=== PATIENT | female | born 1935 | race Caucasian/White ===

== ENCOUNTER 2016-06-22 22:29 | Inpatient (IN) | payer MEDICARE, MEDICAID ==
[2016-06-22 22:29] VITALS: BMI 27.3
--- NOTE | 2016-06-22 22:40 | ED PDOC ---
Psych Transfer Clearance - Clearance Statement Clearance Statement: Reviewed vital signs, lab results and transfer papers. Patient clinically stable for psychiatric admission. UTI treated
[2016-06-22] MEDS ORDERED: Magnesium Hydroxide Susp 30 ml UD PO PRN (23:18)
[2016-06-22] MEDS ORDERED: Bismuth Subsalicylate 262 mg/15 ml Sus (240 ml) PO PRN (23:18)
[2016-06-23 00:41] VITALS: O2SAT 98
[2016-06-23 07:43] LABS: T4 5.97 ug/dl (5.5-11.0)
[2016-06-23 07:57] LABS: THYROID STIMULATING HORMONE 4.12 mIU/ML (0.46-4.68)
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
[2016-06-23] MEDS ORDERED: [UNRECOGNIZED DRUG - OTHER] PO SCH (16:00)
[2016-06-23] MEDS ORDERED: HYDROCHLOROTHIAZIDE PO SCH (16:00)
[2016-06-23] MEDS ORDERED: VALSARTAN PO SCH (16:00)
[2016-06-23] MEDS: Cefdinir 300 MG CAP PO SCH (16:36)
--- NOTE | 2016-06-23 16:41 | CP.PCM.CON ---
History of Present Illness - History of Present Illness History of Present Illness: 81 yo female with history of Schizophrenia admitted to [facility] because of paranoia that her was trying to kill her. Review of Systems - Review of Systems All systems: reviewed and no additional remarkable complaints except (aside from those mentioned above, 12 point system review were negative by me) Past Patient History - Past Medical History & Family History Past Medical History?: Yes - Past Social History Smoking Status: Never Smoked Alcohol: None Drugs: Denies - CARDIAC Hx Hypercholesterolemia: Yes Hx Hypertension: Yes - PULMONARY Hx Asthma: Yes Hx Chronic Obstructive Pulmonary Disease (COPD): Yes - NEUROLOGICAL Hx Alzheimer's Disease: Yes HX Cerebrovascular Accident: No Hx Seizures: No - HEENT Hx HEENT Problems: No - RENAL Hx Chronic Kidney Disease: No - ENDOCRINE/METABOLIC Hx Diabetes Mellitus Type 2: Yes - HEMATOLOGICAL/ONCOLOGICAL Hx Cancer: No Hx Human Immunodeficiency Virus (HIV): No - INTEGUMENTARY Hx Dermatological Problems: No - MUSCULOSKELETAL/RHEUMATOLOGICAL Hx Falls: Yes - GASTROINTESTINAL Hx Gastritis: Yes - GENITOURINARY/GYNECOLOGICAL Hx Sexually Transmitted Disorders: No - PSYCHIATRIC Hx Depression: Yes Hx Schizophrenia: Yes Hx Substance Use: No - SURGICAL HISTORY Hx Coronary Stent: Yes (CANNOT RECALL DATE) - ANESTHESIA Hx Anesthesia: Yes Hx Anesthesia Reactions: No Meds Allergies/Adverse Reactions: Allergies Allergy/AdvReac Type Severity Reaction Status Date / Time No Known Allergies Allergy Verified 06/22/16 22:32 - Medications Medications: Current Medications Acetaminophen (Tylenol 325mg Tab) 650 mg PO Q4 PRN PRN Reason: Pain, moderate (4-7) Last Admin: 06/23/16 10:39 Dose: 650 mg Al Hydrox/Mg Hydrox/Simethicone (Maalox Plus 30 Ml) 30 ml PO Q4 PRN PRN Reason: Dyspepsia Bismuth Subsalicylate (Pepto-Bismol) 524 mg PO Q4 PRN PRN Reason: Diarrhea Cefdinir (Omnicef) 300 mg PO BID [facility] Last Admin: 06/23/16 16:36 Dose: 300 mg Cholecalciferol (Vitamin D) 1,000 iu PO QWK [facility] Gabapentin (Neurontin) 600 mg PO DAILY [facility] Haloperidol (Haldol) 2 mg PO Q8 PRN PRN Reason: Agitation Haloperidol Lactate (Haldol) 2 mg IM Q8 PRN PRN Reason: Agitation Hydrochlorothiazide (Microzide) 12.5 mg PO DAILY [facility] Insulin Detemir (Levemir) 25 units SC HS [facility] Magnesium Hydroxide (Milk Of Magnesia) 30 ml PO HS PRN PRN Reason: Constipation Metformin HCl (Glucophage) 500 mg PO BIDWM [facility] Mirtazapine (Remeron) 15 mg PO HS [facility] Nortriptyline HCl (Pamelor) 25 mg PO DAILY [facility] Last Admin: 06/23/16 12:38 Dose: 25 mg Quetiapine Fumarate (Seroquel) 50 mg PO HS [facility] Quetiapine Fumarate (Seroquel) 25 mg PO Q6 PRN PRN Reason: Agitation Valsartan (Diovan) 160 mg PO DAILY [facility] Physical Exam - Constitutional Appears: No Acute Distress - Head Exam Head Exam: ATRAUMATIC - Eye Exam Eye Exam: absent: Scleral icterus - ENT Exam ENT Exam: Mucous Membranes Moist - Neck Exam Neck exam: Negative for: Meningismus - Respiratory Exam Respiratory Exam: absent: Rhonchi, Wheezes, Respiratory Distress - Cardiovascular Exam Cardiovascular Exam: REGULAR RHYTHM, +S1, +S2 - GI/Abdominal Exam GI & Abdominal Exam: Soft. absent: Tenderness - Rectal Exam Rectal Exam: Deferred - Neurological Exam Neurological exam: Alert, Oriented x3 - Psychiatric Exam Psychiatric exam: Normal Affect - Skin Skin Exam: Dry, Intact Results - Vital Signs Recent Vital Signs: Last Vital Signs Temp 98.2 F 06/23/16 15:43 Pulse 76 06/23/16 15:43 Resp 18 06/23/16 15:43 BP 133/96 H 06/23/16 15:43 Pulse Ox 98 06/22/16 23:10 - Labs Labs: Laboratory Results - last 24 hr 06/23/16 06/23/16 06/23/16 05:17 06:58 11:46 POC Glucose (mg/dL) 107 216 H Ferritin 58.0 Vitamin B12 296 Free T4 0.83 Thyroxine (T4) 5.97 TSH 3rd Generation 4.12 06/23/16 15:11 POC Glucose (mg/dL) 174 H Ferritin Vitamin B12 Free T4 Thyroxine (T4) TSH 3rd Generation Assessment & Plan (1) Paranoia Status: Acute Comment: psyche is managing (2) UTI (urinary tract infection) Status: Acute Comment: received Macrobid in the ER however pharmacy claimed her creatinine clearance is way up and Nitrofurantoin is contraindicated. Cefdinir 300mg PO BID for 5 days (3) HTN (hypertension) Status: Acute Comment: BP slightly elevated. Valsartan 160mg PO daily. HCTZ 12.5mg PO daily
[2016-06-23] MEDS ORDERED: TIZANIDINE HCL 4 MG PO SCH (17:00)
[2016-06-23] MEDS: Insulin Detemir 100 Units/ml Inj SC SCH (21:16)
[2016-06-24 07:48] LABS: BLOOD UREA NITROGEN 17 mg/dl (7-17); CALCIUM 9.6 mg/dL (8.4-10.2); CARBON DIOXIDE 26 mmol/L (22-30); CHLORIDE 104 mmol/L (98-107); GFR AFRICAN-AMERICAN > 60; GLUCOSE,RANDOM 131 mg/dL (65-105); POTASSIUM 4.1 MMOL/L (3.6-5.0); SODIUM 145 mmol/l (132-148)
[2016-06-24 07:55] LABS: BASO % 0.6 % (0.0-2.0); EOS % 0.4 % (0.0-4.0); HEMATOCRIT 37.3 % (34.0-47.0); LYMPH # 2.6 K/uL (1.0-4.3); LYMPH % 34.8 % (20.0-40.0); MEAN CELL VOLUME 90.1 fl (81.0-99.0); MEAN CORPUSCULAR HEMOGLOBIN 29.7 pg (27.0-31.0); MEAN PLATELET VOLUME 9.2 fl (7.2-11.7); MONO % 12.7 % (0.0-10.0); NEUT # 3.9 K/uL (1.8-7.0); NEUT % 51.5 % (50.0-75.0); RED CELL DISTRIBUTION WIDTH 14.8 % (11.5-14.5); WHITE BLOOD COUNT 7.5 K/uL (4.8-10.8)
[2016-06-24] MEDS: Cefdinir 300 MG CAP PO SCH ×2 (09:49→17:49)
--- NOTE | 2016-06-24 10:42 | PCM.PYCHPN ---
Psychiatric Progress Note - Psychiatric Progress Note Patient seen today, length of contact: Patient evaluated, case discussed with team, chart reviewed Patient Chief Complaint: "My wants to hurt me" Problems Identified/Issues Discussed: Patient continues to be paranoid that her want to kill and harm her. She is unable to reality test. She reports continued feelings of fear and anxiety related to her paranoia. No current AH/VH. She has been sleep/eating well as per staff observation. Medication Change: Yes (Increase Seroquel to 100 mg PO HS) Medical Record Reviewed: Yes Mental Status Examination - Cognitive Function Orientation: Person, Place, Situation, Time Memory: Impaired (Patient unable to give a good history, unclear if due to dementia or psychosis) Association: Loose - Mood Mood: Depressed, Anxious - Affect Affect: Constricted (Scared that her is trying to kill her) - Speech Speech: Soft - Formal Thought Process Formal Thought Process: Delusions, Paranoia Psychotic Thoughts and Behaviors: +Paranoia, Denies AH/VH - Suicidal Ideation Suicidal Ideation: No - Homicidal Ideation Homicidal Ideation: No Goal/Treatment Plan - Goal/Treatment Plan Need for Continued Stay: Remain at risks for inpatient hospitalization, Discharge may exacerbated symptoms, Severe functional impairment Progress Toward Problem(s) and Goals/Treatment Plan: 81 yo female with reported h/o schizophrenia, presents with acute psychosis, paranoia and bizarre/aggressive behaviors. Need to r/o dementia. Plan: -Increase Seroquel to 100 mg PO HS, will titrate as clinically appropriate -Continue Remeron 15 mg PO HS, will consider titrating as clinically indicated -Continue Nortriptyline 25 mg PO Daily -Psychology consult for r/o dementia; will also consider Neurology consult if patient has clear signs of dementia to recommend appropriate medications -Routine medicine consult appreciated -PT screening Estimated Date of D/C: 06/30/16
[2016-06-24] MEDS: Insulin Detemir 100 Units/ml Inj SC SCH (21:26)
[2016-06-25] MEDS: Cefdinir 300 MG CAP PO SCH ×2 (09:31→17:35)
--- NOTE | 2016-06-25 10:55 | CP.PCM.CON ---
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 Pt spoke of her spirits on interview and her thinking was disorganized. Testing may be an underestimate of her true cognitive status, influenced by her current psychiatric status. On the DRS, pt scored an overall score of 100>. Attention skills fell within normal limits. Her Construction, memory, conceptualization skills and initiation skills all fell in the deficient range. Testing consistent with significant cognitive deficits and current thought disorganization. Overall 100 (125+ = intact cognitive skills) thank you for this referral, Dr. Chamberlain Past Patient History - Past Medical History & Family History Past Medical History?: Yes - Past Social History Smoking Status: Never Smoked Alcohol: None Drugs: Denies - CARDIAC Hx Hypercholesterolemia: Yes Hx Hypertension: Yes - PULMONARY Hx Asthma: Yes Hx Chronic Obstructive Pulmonary Disease (COPD): Yes - NEUROLOGICAL Hx Alzheimer's Disease: Yes HX Cerebrovascular Accident: No Hx Seizures: No - HEENT Hx HEENT Problems: No - RENAL Hx Chronic Kidney Disease: No - ENDOCRINE/METABOLIC Hx Diabetes Mellitus Type 2: Yes - HEMATOLOGICAL/ONCOLOGICAL Hx Cancer: No Hx Human Immunodeficiency Virus (HIV): No - INTEGUMENTARY Hx Dermatological Problems: No - MUSCULOSKELETAL/RHEUMATOLOGICAL Hx Falls: Yes - GASTROINTESTINAL Hx Gastritis: Yes - GENITOURINARY/GYNECOLOGICAL Hx Sexually Transmitted Disorders: No - PSYCHIATRIC Hx Depression: Yes Hx Schizophrenia: Yes Hx Substance Use: No - SURGICAL HISTORY Hx Coronary Stent: Yes (CANNOT RECALL DATE) - ANESTHESIA Hx Anesthesia: Yes Hx Anesthesia Reactions: No Meds Allergies/Adverse Reactions: Allergies Allergy/AdvReac Type Severity Reaction Status Date / Time No Known Allergies Allergy Verified 06/22/16 22:32 - Medications Medications: Current Medications Acetaminophen (Tylenol 325mg Tab) 650 mg PO Q4 PRN PRN Reason: Pain, moderate (4-7) Last Admin: 06/24/16 09:47 Dose: 650 mg Al Hydrox/Mg Hydrox/Simethicone (Maalox Plus 30 Ml) 30 ml PO Q4 PRN PRN Reason: Dyspepsia Bismuth Subsalicylate (Pepto-Bismol) 524 mg PO Q4 PRN PRN Reason: Diarrhea Cefdinir (Omnicef) 300 mg PO BID [facility] Last Admin: 03/31/17 09:31 Dose: 300 mg Cholecalciferol (Vitamin D) 1,000 iu PO QWK [facility] Gabapentin (Neurontin) 600 mg PO DAILY [facility] Last Admin: 06/25/16 09:31 Dose: 600 mg Haloperidol (Haldol) 2 mg PO Q8 PRN PRN Reason: Agitation Haloperidol Lactate (Haldol) 2 mg IM Q8 PRN PRN Reason: Agitation Hydrochlorothiazide (Microzide) 12.5 mg PO DAILY [facility] Last Admin: 06/25/16 09:32 Dose: 12.5 mg Insulin Detemir (Levemir) 25 units SC HS [facility] Last Admin: 06/24/16 21:26 Dose: 25 units Magnesium Hydroxide (Milk Of Magnesia) 30 ml PO HS PRN PRN Reason: Constipation Last Admin: 06/25/16 06:59 Dose: 30 ml Metformin HCl (Glucophage) 500 mg PO BIDWM [facility] Last Admin: 06/25/16 09:32 Dose: 500 mg Mirtazapine (Remeron) 15 mg PO HS [facility] Last Admin: 06/24/16 21:25 Dose: 15 mg Nortriptyline HCl (Pamelor) 25 mg PO DAILY [facility] Last Admin: 06/25/16 09:32 Dose: 25 mg Quetiapine Fumarate (Seroquel) 25 mg PO Q6 PRN PRN Reason: Agitation Quetiapine Fumarate (Seroquel) 100 mg PO HS [facility] Last Admin: 06/24/16 21:25 Dose: 100 mg Valsartan (Diovan) 160 mg PO DAILY [facility] Last Admin: 06/25/16 09:32 Dose: 160 mg Results - Vital Signs Recent Vital Signs: Last Vital Signs Temp 97.1 F L 06/25/16 06:00 Pulse 89 06/25/16 06:00 Resp 18 06/25/16 06:00 BP 139/73 06/25/16 06:00 Pulse Ox 98 06/22/16 23:10 - Labs Result Diagrams: 06/24/16 07:16 06/24/16 07:16 Labs: Laboratory Results - last 24 hr 06/24/16 06/24/16 06/24/16 11:58 15:40 19:58 POC Glucose (mg/dL) 241 H 160 H 255 H 06/25/16 06:19 POC Glucose (mg/dL) 182 H
--- NOTE | 2016-06-25 18:11 | PCM.PYCHPN ---
Psychiatric Progress Note - Psychiatric Progress Note Patient seen today, length of contact: Patient evaluated, case discussed with team, chart reviewed Medical Problems: per chart Diagnostic Results: per psychiatry per medicine per nursing per social work per recreational therapy DSM 5 Symptoms Update: alteration in self care alteration in cognitive function Medication Change: No Medical Record Reviewed: Yes Mental Status Examination - Cognitive Function Orientation: Person, Place, Situation, Time Memory: Impaired (Patient unable to give a good history, unclear if due to dementia or psychosis) Attention: Poor Concentration: Poor Association: Loose Fund of Knowledge: Poor Decription of patient's judgement and insights: impaired - Mood Mood: Depressed, Anxious - Affect Affect: Constricted (Scared that her is trying to kill her) - Speech Speech: Soft - Formal Thought Process Formal Thought Process: Delusions, Paranoia - Suicidal Ideation Suicidal Ideation: No - Homicidal Ideation Homicidal Ideation: No Goal/Treatment Plan - Goal/Treatment Plan Need for Continued Stay: Remain at risks for inpatient hospitalization, Discharge may exacerbated symptoms, Severe functional impairment Progress Toward Problem(s) and Goals/Treatment Plan: inpt milieu adjust meds per clinical status vital signs and clinical observation per protocol and per status falls precaution skin integrety precautions hob elevated with po intake discharge planning in progress Estimated Date of D/C: 06/30/16 - Smoking Cessation Smoking Cessation Initiated: No Reason for not providing: deferred
[2016-06-25] MEDS: Insulin Detemir 100 Units/ml Inj SC SCH (22:02)
[2016-06-26] MEDS: Cefdinir 300 MG CAP PO SCH ×2 (08:51→16:55)
--- NOTE | 2016-06-26 12:36 | PCM.PYCHPN ---
Psychiatric Progress Note - Psychiatric Progress Note Patient seen today, length of contact: Patient evaluated, case discussed with team, chart reviewed Patient Chief Complaint: pt has remained paranoid and internally preoccupied Medication Change: No Medical Record Reviewed: Yes Mental Status Examination - Cognitive Function Orientation: Person, Place, Situation, Time Memory: Impaired (Patient unable to give a good history, unclear if due to dementia or psychosis) Attention: Poor Concentration: Poor Association: Loose Fund of Knowledge: Poor - Mood Mood: Depressed, Anxious - Affect Affect: Constricted (Scared that her is trying to kill her) - Speech Speech: Soft - Formal Thought Process Formal Thought Process: Delusions, Paranoia - Suicidal Ideation Suicidal Ideation: No - Homicidal Ideation Homicidal Ideation: No Goal/Treatment Plan - Goal/Treatment Plan Need for Continued Stay: Remain at risks for inpatient hospitalization, Discharge may exacerbated symptoms, Severe functional impairment Progress Toward Problem(s) and Goals/Treatment Plan: will continue to stabilize pt with therapy and meds Estimated Date of D/C: 06/30/16
[2016-06-26] MEDS: Insulin Detemir 100 Units/ml Inj SC SCH (22:00)
[2016-06-27] MEDS ORDERED: Albuterol-Ipratrop 3 mg / 0.5 (3 ml) UD INH PRN (00:03)
[2016-06-27] MEDS: Cefdinir 300 MG CAP PO SCH ×2 (09:05→17:48)
--- NOTE | 2016-06-27 14:21 | PCM.PYCHPN ---
Psychiatric Progress Note - Psychiatric Progress Note Patient seen today, length of contact: Patient evaluated, case discussed with team, chart reviewed Patient Chief Complaint: pt has remained paranoid and internally preoccupied Problems Identified/Issues Discussed: admitted for acute agitation and psychosis due to schizophrenia Medical Problems: DM<gastritis DSM 5 Symptoms Update: schizophrenia paranoid Medication Change: No Medical Record Reviewed: Yes Mental Status Examination - Cognitive Function Orientation: Person, Place, Situation, Time Memory: Impaired (Patient unable to give a good history, unclear if due to dementia or psychosis) Attention: Poor Concentration: Poor Association: Loose Fund of Knowledge: Poor - Mood Mood: Depressed, Anxious - Affect Affect: Constricted (Scared that her is trying to kill her) - Speech Speech: Soft - Formal Thought Process Formal Thought Process: Delusions, Paranoia - Suicidal Ideation Suicidal Ideation: No - Homicidal Ideation Homicidal Ideation: No Goal/Treatment Plan - Goal/Treatment Plan Need for Continued Stay: Remain at risks for inpatient hospitalization, Discharge may exacerbated symptoms, Severe functional impairment Progress Toward Problem(s) and Goals/Treatment Plan: will continue to titrate the meds seroquel,remeron and other meds to stabilize the pt Estimated Date of D/C: 06/30/16
[2016-06-27] MEDS: Insulin Detemir 100 Units/ml Inj SC SCH (21:19)
[2016-06-28] MEDS: Cefdinir 300 MG CAP PO SCH ×2 (09:15→17:10)
[2016-06-28 10:27] LABS: NORTRIPTYLINE None Det. mcg/L (())
[2016-06-28] MEDS: Insulin Lispro (humaLOG) 100 Units/ml Inj SC SCH ×2 (17:09→22:00)
--- NOTE | 2016-06-28 17:28 | PCM.PYCHPN ---
Psychiatric Progress Note - Psychiatric Progress Note Patient seen today, length of contact: Patient evaluated, case discussed with team, chart reviewed Patient Chief Complaint: changes in cognition, paranoia, alteration in self care Problems Identified/Issues Discussed: changes in memory, changes cognition, changes in self care Medical Problems: per chart Diagnostic Results: per psychiatry per medicine per nursing per social work per recreational therapy DSM 5 Symptoms Update: alteration in memory alteration in mood alteration in self care alteration in cognition Medication Change: No Medical Record Reviewed: Yes Mental Status Examination - Cognitive Function Orientation: Person, Place, Situation Memory: Impaired (Patient unable to give a good history, unclear if due to dementia or psychosis) Attention: Poor Concentration: Poor Association: Loose Fund of Knowledge: Poor - Mood Mood: Depressed, Anxious - Affect Affect: Constricted (Scared that her is trying to kill her) - Speech Speech: Soft - Formal Thought Process Formal Thought Process: Delusions, Paranoia - Suicidal Ideation Suicidal Ideation: No - Homicidal Ideation Homicidal Ideation: No Goal/Treatment Plan - Goal/Treatment Plan Need for Continued Stay: Remain at risks for inpatient hospitalization, Discharge may exacerbated symptoms, Severe functional impairment Progress Toward Problem(s) and Goals/Treatment Plan: inpt milieu adjust meds per clinical status vital signs and clinical observation per protocol and per status falls precaution skin integrety precautions hob elevated with po intake discharge planning in progress Estimated Date of D/C: 07/02/16 - Smoking Cessation Smoking Cessation Initiated: No Reason for not providing: deferred
[2016-06-28] MEDS: Insulin Detemir 100 Units/ml Inj SC SCH (21:05)
[2016-06-28] MEDS: Hydrocortisone 2.5% (Rectal) CREAM PR SCH (21:07)
[2016-06-29] MEDS: Insulin Lispro (humaLOG) 100 Units/ml Inj SC SCH ×4 (08:22→21:28)
[2016-06-29] MEDS: Hydrocortisone 2.5% (Rectal) CREAM PR SCH ×2 (08:22→16:33)
--- NOTE | 2016-06-29 17:14 | PCM.PYCHPN ---
Psychiatric Progress Note - Psychiatric Progress Note Patient seen today, length of contact: Patient evaluated, case discussed with team, chart reviewed Patient Chief Complaint: changes in cognition, paranoia, alteration in self care-staff report pt continues to be paranoid, fearful that someone is poisoning her food Problems Identified/Issues Discussed: changes in memory, changes cognition, changes in self care Medical Problems: per chart Diagnostic Results: per psychiatry per medicine per nursing per social work per recreational therapy DSM 5 Symptoms Update: alteration in cognition alteration in self care Medication Change: No Medical Record Reviewed: Yes Mental Status Examination - Cognitive Function Orientation: Person, Place, Situation Memory: Impaired (Patient unable to give a good history, unclear if due to dementia or psychosis) Attention: Poor Concentration: Poor Association: Loose Fund of Knowledge: Poor Decription of patient's judgement and insights: poor - Mood Mood: Depressed, Anxious - Affect Affect: Constricted (Scared that her is trying to kill her) - Speech Speech: Soft - Formal Thought Process Formal Thought Process: Delusions, Paranoia - Suicidal Ideation Suicidal Ideation: No - Homicidal Ideation Homicidal Ideation: No Goal/Treatment Plan - Goal/Treatment Plan Need for Continued Stay: Remain at risks for inpatient hospitalization, Discharge may exacerbated symptoms, Severe functional impairment Progress Toward Problem(s) and Goals/Treatment Plan: inpt milieu adjust meds per clinical status vital signs and clinical observation per protocol and per status falls precaution skin integrety precautions hob elevated with po intake discharge planning in progress Estimated Date of D/C: 07/02/16 - Smoking Cessation Smoking Cessation Initiated: No Reason for not providing: defers
[2016-06-29] MEDS: Insulin Detemir 100 Units/ml Inj SC SCH (21:29)
[2016-06-30] MEDS: Hydrocortisone 2.5% (Rectal) CREAM PR SCH ×2 (09:00→16:24)
[2016-06-30] MEDS: Insulin Lispro (humaLOG) 100 Units/ml Inj SC SCH ×3 (09:03→16:25)
--- NOTE | 2016-06-30 21:10 | PCM.PYCHPN ---
Psychiatric Progress Note - Psychiatric Progress Note Patient seen today, length of contact: Patient evaluated, case discussed with team, chart reviewed Patient Chief Complaint: changes in cognition, paranoia, alteration in self care-staff report pt continues to be paranoid, fearful that someone is poisoning her food Problems Identified/Issues Discussed: changes in memory, changes cognition, changes in self care Medical Problems: per chart Diagnostic Results: per psychiatry per medicine per nursing per social work per recreational therapy DSM 5 Symptoms Update: changes in cognition changes in paranoia Medication Change: No Medical Record Reviewed: Yes Mental Status Examination - Cognitive Function Orientation: Person, Place, Situation Memory: Impaired (Patient unable to give a good history, unclear if due to dementia or psychosis) Attention: Poor Concentration: Poor Association: Loose Fund of Knowledge: Poor Decription of patient's judgement and insights: poor - Mood Mood: Depressed, Anxious - Affect Affect: Constricted (Scared that her is trying to kill her) - Speech Speech: Soft - Formal Thought Process Formal Thought Process: Delusions, Paranoia - Suicidal Ideation Suicidal Ideation: No - Homicidal Ideation Homicidal Ideation: No Goal/Treatment Plan - Goal/Treatment Plan Need for Continued Stay: Remain at risks for inpatient hospitalization, Discharge may exacerbated symptoms, Severe functional impairment Progress Toward Problem(s) and Goals/Treatment Plan: inpt milieu adjust meds per clinical status vital signs and clinical observation per protocol and per status falls precaution skin integrety precautions hob elevated with po intake discharge planning in progress Estimated Date of D/C: 07/02/16 - Smoking Cessation Smoking Cessation Initiated: No Reason for not providing: deferred
[2016-06-30] MEDS: Insulin Detemir 100 Units/ml Inj SC SCH (21:12)
[2016-07-01] MEDS: Hydrocortisone 2.5% (Rectal) CREAM PR SCH ×2 (09:26→17:19)
[2016-07-01] MEDS: Insulin Lispro (humaLOG) 100 Units/ml Inj SC SCH ×4 (09:27→21:03)
--- NOTE | 2016-07-01 15:21 | PCM.PYCHPN ---
Psychiatric Progress Note - Psychiatric Progress Note Patient seen today, length of contact: Patient evaluated, case discussed with team, chart reviewed Patient Chief Complaint: changes in cognition, paranoia, alteration in self care-staff report pt continues to be paranoid, fearful that someone is poisoning her food, fearful that someone is trying to kill her Problems Identified/Issues Discussed: changes in memory, changes cognition, changes in self care Medical Problems: per chart Diagnostic Results: per psychiatry per medicine per nursing per social work per recreational therapy DSM 5 Symptoms Update: alteration in cognition alteration in mood alteration in self care alteration in thought process Medication Change: No Medical Record Reviewed: Yes Consults ordered or reviewed: order placed for physical therapy treatment Mental Status Examination - Cognitive Function Orientation: Person, Situation Memory: Impaired (Patient unable to give a good history, unclear if due to dementia or psychosis) Attention: Poor Concentration: Poor Association: Loose Fund of Knowledge: Poor Decription of patient's judgement and insights: impaired - Mood Mood: Depressed, Anxious - Affect Affect: Constricted (Scared that her is trying to kill her) - Speech Speech: Soft - Formal Thought Process Formal Thought Process: Delusions, Paranoia - Suicidal Ideation Suicidal Ideation: No - Homicidal Ideation Homicidal Ideation: No Goal/Treatment Plan - Goal/Treatment Plan Need for Continued Stay: Remain at risks for inpatient hospitalization, Discharge may exacerbated symptoms, Severe functional impairment Progress Toward Problem(s) and Goals/Treatment Plan: inpt milieu adjust meds per clinical status vital signs and clinical observation per protocol and per status falls precaution skin integrety precautions hob elevated with po intake physical therapy treatment discharge planning in progress Estimated Date of D/C: 07/02/16 - Smoking Cessation Smoking Cessation Initiated: No Reason for not providing: deferred
[2016-07-01] MEDS: Insulin Detemir 100 Units/ml Inj SC SCH (21:03)
[2016-07-02] MEDS: Hydrocortisone 2.5% (Rectal) CREAM PR SCH ×2 (08:02→17:50)
[2016-07-02] MEDS: Insulin Lispro (humaLOG) 100 Units/ml Inj SC SCH ×4 (08:03→21:28)
--- NOTE | 2016-07-02 19:29 | PCM.PYCHPN ---
Psychiatric Progress Note - Psychiatric Progress Note Patient seen today, length of contact: Patient evaluated, case discussed with team, chart reviewed Patient Chief Complaint: changes in cognition, paranoia, alteration in self care-staff report pt continues to be paranoid, fearful that someone is poisoning her food, fearful that someone is trying to kill her, previous abnormal urinalysis Problems Identified/Issues Discussed: changes in memory, changes cognition, changes in self care Medical Problems: per chart Diagnostic Results: per psychiatry per medicine per nursing per social work per recreational therapy DSM 5 Symptoms Update: alteration in cognition alteration in thought process alteration in self care Medication Change: No Medical Record Reviewed: Yes Mental Status Examination - Cognitive Function Orientation: Person, Situation Memory: Impaired (Patient unable to give a good history, unclear if due to dementia or psychosis) Attention: Poor Concentration: Poor Association: Loose Fund of Knowledge: Poor Decription of patient's judgement and insights: poor - Mood Mood: Depressed, Anxious - Affect Affect: Constricted (Scared that her is trying to kill her) - Speech Speech: Soft - Formal Thought Process Formal Thought Process: Delusions, Paranoia - Suicidal Ideation Suicidal Ideation: No - Homicidal Ideation Homicidal Ideation: No Goal/Treatment Plan - Goal/Treatment Plan Need for Continued Stay: Remain at risks for inpatient hospitalization, Discharge may exacerbated symptoms, Severe functional impairment Progress Toward Problem(s) and Goals/Treatment Plan: inpt milieu adjust meds per clinical status vital signs and clinical observation per protocol and per status falls precaution skin integrety precautions hob elevated with po intake physical therapy treatment repeat urinalysis please have hospitalist follow up results discharge planning in progress Estimated Date of D/C: 07/02/16 - Smoking Cessation Smoking Cessation Initiated: No Reason for not providing: pt defers
--- NOTE | 2016-07-02 20:34 | CP.PCM.PN ---
Subjective - Date & Time of Evaluation Date of Evaluation: 07/02/16 Time of Evaluation: 20:35 - Subjective Subjective: Patient with elevated BP and some tachycardia with some accompanying CP. Other VSS. Will order EKG, labs/trops, and labetolol x 1 PO. Objective - Vital Signs/Intake and Output Vital Signs (last 24 hours): Temp Pulse Resp BP Pulse Ox 97.3 F L 82 20 138/64 98 07/02/16 15:54 07/02/16 15:54 07/02/16 15:54 07/02/16 15:54 06/22/16 23:10 - Medications Medications: Current Medications Acetaminophen (Tylenol 325mg Tab) 650 mg PO Q4 PRN PRN Reason: Pain, moderate (4-7) Last Admin: 07/02/16 12:09 Dose: 650 mg Al Hydrox/Mg Hydrox/Simethicone (Maalox Plus 30 Ml) 30 ml PO Q4 PRN PRN Reason: Dyspepsia Albuterol/Ipratropium (Duoneb 3 Mg/0.5 Mg (3 Ml) Ud) 3 ml INH RQ6 PRN PRN Reason: Shortness of Breath Last Admin: 06/27/16 00:12 Dose: 3 ml Bismuth Subsalicylate (Pepto-Bismol) 524 mg PO Q4 PRN PRN Reason: Diarrhea Cholecalciferol (Vitamin D) 1,000 iu PO QWK [facility] Last Admin: 06/26/16 08:51 Dose: 1,000 iu Gabapentin (Neurontin) 600 mg PO DAILY [facility] Last Admin: 07/02/16 08:03 Dose: 600 mg Haloperidol (Haldol) 2 mg PO Q8 PRN PRN Reason: Agitation Haloperidol Lactate (Haldol) 2 mg IM Q8 PRN PRN Reason: Agitation Hydrochlorothiazide (Microzide) 12.5 mg PO DAILY [facility] Last Admin: 07/02/16 08:05 Dose: 12.5 mg Hydrocortisone (Anusol-Hc) 1 applic ND BID [facility] Last Admin: 07/02/16 17:50 Dose: 1 appl Insulin Detemir (Levemir) 25 units SC HS [facility] Last Admin: 07/01/16 21:03 Dose: 25 units Insulin Human Lispro (Humalog) 0 units SC [facility] PRN Reason: Protocol Last Admin: 07/02/16 17:45 Dose: 2 units Labetalol HCl (Trandate) 100 mg PO STAT STA Stop: 07/02/16 20:30 Magnesium Hydroxide (Milk Of Magnesia) 30 ml PO HS PRN PRN Reason: Constipation Last Admin: 06/25/16 06:59 Dose: 30 ml Metformin HCl (Glucophage) 500 mg PO BIDWM [facility] Last Admin: 07/02/16 17:49 Dose: 500 mg Mirtazapine (Remeron) 15 mg PO HS [facility] Last Admin: 07/01/16 21:02 Dose: 15 mg Nortriptyline HCl (Pamelor) 25 mg PO DAILY [facility] Last Admin: 07/02/16 08:04 Dose: 25 mg Quetiapine Fumarate (Seroquel) 25 mg PO Q6 PRN PRN Reason: Agitation Last Admin: 07/02/16 08:03 Dose: 25 mg Quetiapine Fumarate (Seroquel) 100 mg PO HS [facility] Last Admin: 07/01/16 21:02 Dose: 100 mg Valsartan (Diovan) 160 mg PO DAILY [facility] Last Admin: 07/02/16 08:02 Dose: 160 mg - Labs Labs: 06/24/16 07:16 06/24/16 07:16
[2016-07-02] MEDS: Alum-Mag Hydrox-Simethicone Susp (30 mL) PO PRN (21:26)
[2016-07-02] MEDS: Insulin Detemir 100 Units/ml Inj SC SCH (21:30)
[2016-07-02 21:39] LABS: MEAN CELL VOLUME 89.7 fl (81.0-99.0); MEAN CORPUSCULAR HEMOGLOBIN 29.8 pg (27.0-31.0); MEAN CORPUSCULAR HGB CONC 33.2 g/dL (33.0-37.0); RED CELL DISTRIBUTION WIDTH 13.9 % (11.5-14.5)
[2016-07-02 21:42] LABS: CALCIUM 9.8 mg/dL (8.4-10.2); POTASSIUM 4.2 MMOL/L (3.6-5.0)
[2016-07-03] MEDS: Hydrocortisone 2.5% (Rectal) CREAM PR SCH ×2 (08:52→17:19)
[2016-07-03] MEDS: Insulin Lispro (humaLOG) 100 Units/ml Inj SC SCH ×4 (11:38→23:38)
--- NOTE | 2016-07-03 12:30 | PCM.PYCHPN ---
Psychiatric Progress Note - Psychiatric Progress Note Patient seen today, length of contact: discussed with team Patient Chief Complaint: the staff aren't taking care of me Problems Identified/Issues Discussed: pt seen with south korean speaking social media intern. states she's not being taken care of right, seems paranoid about staff and about the food. she is in hallway chatting with other south korean patients. she reports poor sleep. Medication Change: Yes (increase seroquel) Medical Record Reviewed: Yes Mental Status Examination - Cognitive Function Orientation: Person, Situation Memory: Impaired (Patient unable to give a good history, unclear if due to dementia or psychosis) Attention: Poor Concentration: Poor Association: Loose Fund of Knowledge: Poor Decription of patient's judgement and insights: poor insight - Mood Mood: Depressed, Anxious - Affect Affect: Constricted (Scared that her is trying to kill her) - Speech Speech: Soft - Formal Thought Process Formal Thought Process: Delusions, Paranoia - Suicidal Ideation Suicidal Ideation: No - Homicidal Ideation Homicidal Ideation: No Goal/Treatment Plan - Goal/Treatment Plan Need for Continued Stay: Remain at risks for inpatient hospitalization, Discharge may exacerbated symptoms, Severe functional impairment Progress Toward Problem(s) and Goals/Treatment Plan: schizophrenia remains paranoid no recent adjustments to seroquel will increase seroquel to 150mg gabrielle monroe Estimated Date of D/C: 07/02/16
--- NOTE | 2016-07-03 15:04 | CARD ---
APPROVED REPORT EKG Measurement Heart [id number] <Conclusion> Normal sinus rhythm Normal ECG
[2016-07-04] MEDS: Hydrocortisone 2.5% (Rectal) CREAM PR SCH ×2 (08:51→16:49)
[2016-07-04] MEDS: Insulin Lispro (humaLOG) 100 Units/ml Inj SC SCH ×3 (08:54→17:04)
--- NOTE | 2016-07-04 13:44 | PCM.PYCHPN ---
Psychiatric Progress Note - Psychiatric Progress Note Patient seen today, length of contact: discussed with team Patient Chief Complaint: i feel better Problems Identified/Issues Discussed: pt seen with arabic speaking social security specialist. still expressing some paranoid thoughts. she is reporting sleeping better. reports some leg pain. Medication Change: No ( ) Medical Record Reviewed: Yes Mental Status Examination - Cognitive Function Orientation: Person, Situation Memory: Impaired (Patient unable to give a good history, unclear if due to dementia or psychosis) Attention: Poor Concentration: Poor Association: Loose Fund of Knowledge: Poor Decription of patient's judgement and insights: improving - Mood Mood: Depressed, Anxious - Affect Affect: Constricted (Scared that her is trying to kill her) - Speech Speech: Soft - Formal Thought Process Formal Thought Process: Delusions, Paranoia - Suicidal Ideation Suicidal Ideation: No - Homicidal Ideation Homicidal Ideation: No Goal/Treatment Plan - Goal/Treatment Plan Need for Continued Stay: Remain at risks for inpatient hospitalization, Discharge may exacerbated symptoms, Severe functional impairment Progress Toward Problem(s) and Goals/Treatment Plan: schizophrenia remains paranoid no recent adjustments to seroquel will continue seroquel to 150mg hs tonight- monitor leg pain, could be related to dose increase Estimated Date of D/C: 07/02/16
[2016-07-04] MEDS: Insulin Detemir 100 Units/ml Inj SC SCH (21:06)
[2016-07-05] MEDS: Insulin Lispro (humaLOG) 100 Units/ml Inj SC SCH ×4 (07:57→21:08)
[2016-07-05] MEDS: Hydrocortisone 2.5% (Rectal) CREAM PR SCH ×2 (09:22→17:54)
--- NOTE | 2016-07-05 10:59 | PCM.PYCHPN ---
Psychiatric Progress Note - Psychiatric Progress Note Patient seen today, length of contact: Patient evaluated, chart reviewed, case discussed with team, 35 min Patient Chief Complaint: "My wants to kill me" Problems Identified/Issues Discussed: Patient continues to be paranoid that her want to kill and harm her. She is unable to reality test. She reports continued feelings of fear and anxiety related to her paranoia. No current AH/VH. She has been sleep/eating well as per staff observation. Medication Change: Yes (Increase Seroquel to 50 mg PO AM/ 150 mg PO HS ) Medical Record Reviewed: Yes Mental Status Examination - Cognitive Function Orientation: Person, Situation Memory: Impaired (Patient unable to give a good history, unclear if due to dementia or psychosis) Attention: Poor Concentration: Poor Association: Loose Fund of Knowledge: Poor Decription of patient's judgement and insights: Poor insight/judgment - Mood Mood: Anxious - Affect Affect: Constricted (Scared that her is trying to kill her) - Speech Speech: Soft - Formal Thought Process Formal Thought Process: Delusions, Paranoia Psychotic Thoughts and Behaviors: +Paranoia towards - Suicidal Ideation Suicidal Ideation: No - Homicidal Ideation Homicidal Ideation: No Goal/Treatment Plan - Goal/Treatment Plan Need for Continued Stay: Remain at risks for inpatient hospitalization, Discharge may exacerbated symptoms, Severe functional impairment Progress Toward Problem(s) and Goals/Treatment Plan: 81 yo female with reported h/o schizophrenia, presents with acute psychosis, paranoia and bizarre/aggressive behaviors. Plan: -Increase Seroquel to 50 mg PO AM/ 150 mg PO HS, will titrate as clinically appropriate -Continue Remeron 15 mg PO HS, will consider titrating as clinically indicated -Continue Nortriptyline 25 mg PO Daily Estimated Date of D/C: 07/09/16
[2016-07-05] MEDS: Insulin Detemir 100 Units/ml Inj SC SCH (21:09)
[2016-07-05 23:58] LABS: RBC URINE 7 /hpf (0-3); URINE BACTERIA OCC (<OCC); URINE BILIRUBIN NEGATIVE (NEGATIVE); URINE BLOOD NEGATIVE (NEGATIVE); URINE COLOR YELLOW (YELLOW); URINE GLUCOSE (UA) NEG (Normal); URINE KETONE NEGATIVE (NEGATIVE); URINE LEUKOCYTE ESTERASE LARGE Leu/uL (Negative); URINE PROTEIN NEGATIVE (NEGATIVE); URINE UROBILINOGEN 0.2-1.0 mg/dL (0.2-1.0); WBC CLUMPS MANY /hpf; WBC URINE 1665 /hpf (0-5)
--- NOTE | 2016-07-06 08:22 | PCM.PYCHPN ---
Psychiatric Progress Note - Psychiatric Progress Note Patient seen today, length of contact: Patient evaluated, chart reviewed, case discussed with team, 35 min Patient Chief Complaint: "My huber my legs Problems Identified/Issues Discussed: Patient continues to be paranoid that her wants to harm her, stating that her huber her legs. She is unable to reality test. She reports continued feelings of fear and anxiety related to her paranoia. No current AH/ VH. She has been sleep/eating well as per staff observation. Medication Change: Yes (Increase Seroquel to 50 mg PO AM/ 200 mg PO HS ) Medical Record Reviewed: Yes Mental Status Examination - Cognitive Function Orientation: Person, Situation Memory: Impaired (Patient unable to give a good history, unclear if due to dementia or psychosis) Attention: Poor Concentration: Poor Association: Loose Fund of Knowledge: Poor Decription of patient's judgement and insights: Poor insight/judgment - Mood Mood: Anxious - Affect Affect: Constricted (Scared that her is trying to kill her) - Speech Speech: Soft - Formal Thought Process Formal Thought Process: Delusions, Paranoia Psychotic Thoughts and Behaviors: +Paranoia about her - Suicidal Ideation Suicidal Ideation: No - Homicidal Ideation Homicidal Ideation: No Goal/Treatment Plan - Goal/Treatment Plan Need for Continued Stay: Remain at risks for inpatient hospitalization, Discharge may exacerbated symptoms, Severe functional impairment Progress Toward Problem(s) and Goals/Treatment Plan: 81 yo female with reported h/o schizophrenia, presents with acute psychosis, paranoia and bizarre/aggressive behaviors. Plan: -Increase Seroquel to 50 mg PO AM/ 200 mg PO HS, will titrate as clinically appropriate -Continue Remeron 15 mg PO HS -Continue Nortriptyline 25 mg PO Daily Estimated Date of D/C: 07/09/16 - Smoking Cessation Smoking Cessation Initiated: No Reason for not providing: Not indicated
[2016-07-06] MEDS: Hydrocortisone 2.5% (Rectal) CREAM PR SCH ×2 (08:28→17:38)
[2016-07-06] MEDS: Insulin Lispro (humaLOG) 100 Units/ml Inj SC SCH ×3 (08:29→17:39)
[2016-07-06] MEDS: Insulin Detemir 100 Units/ml Inj SC SCH ×2 (21:08→21:11)
[2016-07-07] MEDS: Hydrocortisone 2.5% (Rectal) CREAM PR SCH ×2 (08:06→17:19)
[2016-07-07] MEDS: Insulin Lispro (humaLOG) 100 Units/ml Inj SC SCH ×5 (08:08→17:27)
--- NOTE | 2016-07-07 10:34 | PCM.PYCHPN ---
Psychiatric Progress Note - Psychiatric Progress Note Patient seen today, length of contact: Patient evaluated, chart reviewed, case discussed with team Patient Chief Complaint: "Nobody helps me, everyone wants to hurt me." Problems Identified/Issues Discussed: Patient continues to be paranoid paranoid about staff and her . She is unable to reality test. She reports continued feelings of fear and anxiety related to her paranoia. No current AH/VH. She has been sleep/eating well as per staff observation. Medication Change: Yes (Increase Seroquel to 100 mg PO AM/ 200 mg PO HS ) Medical Record Reviewed: Yes Mental Status Examination - Cognitive Function Orientation: Person, Situation Memory: Impaired (Patient unable to give a good history, unclear if due to dementia or psychosis) Attention: Poor Concentration: Poor Association: Loose Fund of Knowledge: Poor Decription of patient's judgement and insights: Poor insight/judgment - Mood Mood: Anxious - Affect Affect: Constricted (Scared that her is trying to kill her) - Speech Speech: Soft - Formal Thought Process Formal Thought Process: Delusions, Paranoia Psychotic Thoughts and Behaviors: +Various paranoid delusions - Suicidal Ideation Suicidal Ideation: No - Homicidal Ideation Homicidal Ideation: No Goal/Treatment Plan - Goal/Treatment Plan Need for Continued Stay: Remain at risks for inpatient hospitalization, Discharge may exacerbated symptoms, Severe functional impairment Progress Toward Problem(s) and Goals/Treatment Plan: 81 yo female with reported h/o schizophrenia, presents with acute psychosis, paranoia and bizarre/aggressive behaviors. Plan: -Increase Seroquel to 100 mg PO AM/ 200 mg PO HS, will titrate as clinically appropriate -Continue Remeron 15 mg PO HS -Continue Nortriptyline 25 mg PO Daily Estimated Date of D/C: 07/12/16
--- NOTE | 2016-07-07 21:21 | CARD ---
APPROVED REPORT EKG Measurement Heart [id number] [id number] <Conclusion> Normal sinus rhythm Normal ECG
[2016-07-07] MEDS: Insulin Detemir 100 Units/ml Inj SC SCH (21:28)
[2016-07-08] MEDS: Insulin Lispro (humaLOG) 100 Units/ml Inj SC SCH ×4 (08:23→21:09)
[2016-07-08] MEDS: Hydrocortisone 2.5% (Rectal) CREAM PR SCH ×2 (09:20→16:57)
--- NOTE | 2016-07-08 10:49 | PCM.PYCHPN ---
Psychiatric Progress Note - Psychiatric Progress Note Patient seen today, length of contact: Patient evaluated, chart reviewed, case discussed with team Patient Chief Complaint: "I'm okay" Problems Identified/Issues Discussed: Patient is improving clinically. Her paranoia is improving and she is less pressured to talk about her paranoid ideation. The Seroquel will be switched to HS, due to her feeling sleepy during the day. Otherwise, patient has no acute complaints. No current AH/VH. She has been sleep/eating well as per staff observation. Diagnostic Results: EKG 07/07/16- Normal EKG, normal sinus rhythm Medication Change: Yes (Switch Seroquel to 300 mg PO HS) Medical Record Reviewed: Yes Mental Status Examination - Cognitive Function Orientation: Person Memory: Impaired (Patient unable to give a good history, unclear if due to dementia or psychosis) Attention: Poor Concentration: Poor Association: Loose Fund of Knowledge: Poor Decription of patient's judgement and insights: Poor I/J - Mood Mood: Anxious - Affect Affect: Constricted (Scared that her is trying to kill her) - Speech Speech: Soft - Formal Thought Process Formal Thought Process: Delusions, Paranoia, Loosening of associations Psychotic Thoughts and Behaviors: +Paranoia improving - Suicidal Ideation Suicidal Ideation: No - Homicidal Ideation Homicidal Ideation: No Goal/Treatment Plan - Goal/Treatment Plan Need for Continued Stay: Remain at risks for inpatient hospitalization, Discharge may exacerbated symptoms, Severe functional impairment Progress Toward Problem(s) and Goals/Treatment Plan: 81 yo female with reported h/o schizophrenia, presents with acute psychosis, paranoia and bizarre/aggressive behaviors, now starting to improve clinically. Plan: -Switch Seroquel to 300 mg PO HS -Continue Remeron 15 mg PO HS -Continue Nortriptyline 25 mg PO Daily -Individual, group and milieu tx Estimated Date of D/C: 07/12/16 - Smoking Cessation Smoking Cessation Initiated: No Reason for not providing: Not indicated
[2016-07-08] MEDS: Insulin Detemir 100 Units/ml Inj SC SCH (21:10)
[2016-07-09] MEDS: Insulin Lispro (humaLOG) 100 Units/ml Inj SC SCH ×3 (08:38→17:23)
--- NOTE | 2016-07-09 08:56 | PCM.PYCHPN ---
Psychiatric Progress Note - Psychiatric Progress Note Patient seen today, length of contact: Patient evaluated, chart reviewed, case discussed with team Patient Chief Complaint: "I'm good" Problems Identified/Issues Discussed: Patient continues to improve clinically. Although she has a fixed delusions that her wants to harm her, she is less pressured about it and actually reports she feels safe going home with him, despite her paranoia. No adverse effects to Seroquel reported. No current AH/VH. She has been sleep/eating well as per staff observation. Diagnostic Results: EKG 07/07/16- Normal EKG, normal sinus rhythm Medication Change: No Medical Record Reviewed: Yes Mental Status Examination - Cognitive Function Orientation: Person Memory: Impaired (Patient unable to give a good history, unclear if due to dementia or psychosis) Attention: Poor Concentration: Poor Association: Loose Fund of Knowledge: Poor Decription of patient's judgement and insights: I/J limited - Mood Mood: Anxious - Affect Affect: Constricted (Scared that her is trying to kill her) - Speech Speech: Soft - Formal Thought Process Formal Thought Process: Paranoia, Loosening of associations Psychotic Thoughts and Behaviors: +Fixed paranoid delusions - Suicidal Ideation Suicidal Ideation: No - Homicidal Ideation Homicidal Ideation: No Goal/Treatment Plan - Goal/Treatment Plan Need for Continued Stay: Remain at risks for inpatient hospitalization, Discharge may exacerbated symptoms, Severe functional impairment Progress Toward Problem(s) and Goals/Treatment Plan: 81 yo female with reported h/o schizophrenia, presented with acute psychosis, paranoia and bizarre/aggressive behaviors, now starting to improve clinically. Patient's paranoid toward her is likely a fixed delusion, which she is less pressured and bothered by. Plan: -Continue Seroquel 300 mg PO HS -Continue Remeron 15 mg PO HS -Continue Nortriptyline 25 mg PO Daily -Individual, group and milieu tx -If patient continues to improve, likely referral for subacute rehab on Tuesday Estimated Date of D/C: 07/12/16 - Smoking Cessation Smoking Cessation Initiated: No Reason for not providing: Not indicated
[2016-07-09] MEDS: Hydrocortisone 2.5% (Rectal) CREAM PR SCH ×2 (09:20→17:22)
[2016-07-09] MEDS: Alum-Mag Hydrox-Simethicone Susp (30 mL) PO PRN (18:59)
[2016-07-09] MEDS: Insulin Detemir 100 Units/ml Inj SC SCH (21:08)
[2016-07-10] MEDS: Hydrocortisone 2.5% (Rectal) CREAM PR SCH ×3 (08:48→16:42)
[2016-07-10] MEDS: Insulin Lispro (humaLOG) 100 Units/ml Inj SC SCH ×4 (08:50→16:45)
--- NOTE | 2016-07-10 10:58 | PCM.PYCHPN ---
Psychiatric Progress Note - Psychiatric Progress Note Patient seen today, length of contact: Patient evaluated, chart reviewed, case discussed with team Patient Chief Complaint: "I'm good" Problems Identified/Issues Discussed: Patient continues to improve clinically. She denies paranoia towards her , stating that her apologized to her, so she feels safe around him. She is looking forward to going home. We discussed the option of subacute rehab upon discharge and patient is agreeable at this time. No adverse effects to Seroquel reported. No current AH/VH. She has been sleep/eating well as per staff observation. Diagnostic Results: EKG 07/07/16- Normal EKG, normal sinus rhythm Medication Change: No Medical Record Reviewed: Yes Mental Status Examination - Cognitive Function Orientation: Person Memory: Impaired (Patient unable to give a good history, unclear if due to dementia or psychosis) Attention: Poor Concentration: Poor Association: Loose Fund of Knowledge: Poor Decription of patient's judgement and insights: Poor I/ limited judgment - Mood Mood: Anxious - Affect Affect: Constricted (Scared that her is trying to kill her) - Speech Speech: Soft - Formal Thought Process Formal Thought Process: Loosening of associations Psychotic Thoughts and Behaviors: Denies acute paranoia at this time - Suicidal Ideation Suicidal Ideation: No - Homicidal Ideation Homicidal Ideation: No Goal/Treatment Plan - Goal/Treatment Plan Need for Continued Stay: Remain at risks for inpatient hospitalization, Discharge may exacerbated symptoms, Severe functional impairment Progress Toward Problem(s) and Goals/Treatment Plan: 81 yo female with reported h/o schizophrenia, presented with acute psychosis, paranoia and bizarre/aggressive behaviors, now starting to improve clinically. Patient's paranoid toward her is improving. Plan: -Continue Seroquel 300 mg PO HS -Continue Remeron 15 mg PO HS -Continue Nortriptyline 25 mg PO Daily -Individual, group and milieu tx -If patient continues to improve, likely referral for subacute rehab on Tuesday Estimated Date of D/C: 07/12/16 - Smoking Cessation Smoking Cessation Initiated: No Reason for not providing: Not indicated
[2016-07-10] MEDS: Insulin Detemir 100 Units/ml Inj SC SCH (21:03)
--- NOTE | 2016-07-11 08:50 | PCM.PYCHPN ---
Psychiatric Progress Note - Psychiatric Progress Note Patient seen today, length of contact: Patient evaluated, chart reviewed, case discussed with team Patient Chief Complaint: "I'm good" Problems Identified/Issues Discussed: No significant events overnight. Patient continues to improve clinically. She denies paranoia towards her and feels safe around him. We discussed the option of subacute rehab upon discharge and patient is agreeable at this time. No adverse effects to Seroquel reported. No current AH/VH. She has been sleep/eating well as per staff observation. Diagnostic Results: EKG 07/07/16- Normal EKG, normal sinus rhythm Medication Change: No Medical Record Reviewed: Yes Mental Status Examination - Cognitive Function Orientation: Person Memory: Impaired (Patient unable to give a good history, unclear if due to dementia or psychosis) Attention: Poor Concentration: Poor Association: Loose Fund of Knowledge: Poor Decription of patient's judgement and insights: Poor insight, limited judgment - Mood Mood: Neutral - Affect Affect: Constricted (Scared that her is trying to kill her) - Speech Speech: Soft - Formal Thought Process Formal Thought Process: Loosening of associations Psychotic Thoughts and Behaviors: Denies acute paranoia - Suicidal Ideation Suicidal Ideation: No - Homicidal Ideation Homicidal Ideation: No Goal/Treatment Plan - Goal/Treatment Plan Progress Toward Problem(s) and Goals/Treatment Plan: 81 yo female with reported h/o schizophrenia, presented with acute psychosis, paranoia and bizarre/aggressive behaviors, now improved clinically. Plan: -Continue Seroquel 300 mg PO HS -Continue Remeron 15 mg PO HS -Continue Nortriptyline 25 mg PO Daily -Individual, group and milieu tx -Referral for subacute rehab on Tuesday Estimated Date of D/C: 07/12/16
[2016-07-11] MEDS: Hydrocortisone 2.5% (Rectal) CREAM PR SCH ×2 (10:35→16:41)
[2016-07-11] MEDS: Insulin Lispro (humaLOG) 100 Units/ml Inj SC SCH ×3 (10:37→16:44)
[2016-07-11] MEDS: Insulin Detemir 100 Units/ml Inj SC SCH (21:02)
[2016-07-12] MEDS: Insulin Lispro (humaLOG) 100 Units/ml Inj SC SCH ×3 (08:18→17:06)
[2016-07-12] MEDS: Hydrocortisone 2.5% (Rectal) CREAM PR SCH ×2 (08:34→17:05)
--- NOTE | 2016-07-12 12:44 | PCM.PYCHPN ---
Psychiatric Progress Note - Psychiatric Progress Note Patient seen today, length of contact: Patient evaluated, chart reviewed, case discussed with team Patient Chief Complaint: "I'm good" Problems Identified/Issues Discussed: No significant events overnight. Patient has improved clinically. Denies paranoia towards her and staff. No adverse effects to Seroquel reported. No current AH/VH. She has been sleep/eating well as per staff observation. Diagnostic Results: EKG 07/07/16- Normal EKG, normal sinus rhythm Medication Change: No Medical Record Reviewed: Yes Mental Status Examination - Cognitive Function Orientation: Person Memory: Impaired (Patient unable to give a good history, unclear if due to dementia or psychosis) Attention: Poor Concentration: Poor Association: Loose Fund of Knowledge: Poor Decription of patient's judgement and insights: Limited I/J - Mood Mood: Neutral - Affect Affect: Broad - Speech Speech: Soft - Formal Thought Process Formal Thought Process: Loosening of associations Psychotic Thoughts and Behaviors: Denies acute paranoia, patient has some mild intermittent paranoia at baseline - Suicidal Ideation Suicidal Ideation: No - Homicidal Ideation Homicidal Ideation: No Goal/Treatment Plan - Goal/Treatment Plan Progress Toward Problem(s) and Goals/Treatment Plan: 81 yo female with reported h/o schizophrenia, presented with acute psychosis, paranoia and bizarre/aggressive behaviors, now improved clinically. Plan: -Continue Seroquel 300 mg PO HS -Continue Remeron 15 mg PO HS -Continue Nortriptyline 25 mg PO Daily -Individual, group and milieu tx -Likely discharge to subacute rehab tomrrow Estimated Date of D/C: 07/13/16
[2016-07-12] MEDS: Insulin Detemir 100 Units/ml Inj SC SCH (21:21)
[2016-07-13] MEDS: Hydrocortisone 2.5% (Rectal) CREAM PR SCH ×2 (08:19→17:50)
[2016-07-13] MEDS: Insulin Lispro (humaLOG) 100 Units/ml Inj SC SCH ×6 (08:19→21:05)
--- NOTE | 2016-07-13 10:02 | PCM.PYCHPN ---
Psychiatric Progress Note - Psychiatric Progress Note Patient seen today, length of contact: Patient evaluated, chart reviewed, case discussed with team Patient Chief Complaint: "I'm good" Problems Identified/Issues Discussed: No significant events overnight. Patient has improved clinically. Patient continues to have mild fixed paranoid delusions, but this appears to be the patient's baseline. She is not distressed by these paranoid thoughts and feels safe returning home to her . She has no acute complaints. She spends most of her day quietly coloring without complaint. No current AH/VH. She has been sleep/eating well as per staff observation. Diagnostic Results: EKG 07/07/16- Normal EKG, normal sinus rhythm Medication Change: No Medical Record Reviewed: Yes Mental Status Examination - Cognitive Function Orientation: Person Memory: Impaired (Patient unable to give a good history, unclear if due to dementia or psychosis) Attention: WNL Concentration: WNL Association: Loose Fund of Knowledge: Poor Decription of patient's judgement and insights: Poor insight/ limited judgment - Mood Mood: Neutral - Affect Affect: Broad - Speech Speech: Soft - Formal Thought Process Formal Thought Process: Paranoia, Loosening of associations Psychotic Thoughts and Behaviors: +Mild fixed paranoid delusions- patient at her baseline - Suicidal Ideation Suicidal Ideation: No - Homicidal Ideation Homicidal Ideation: No Goal/Treatment Plan - Goal/Treatment Plan Progress Toward Problem(s) and Goals/Treatment Plan: 81 yo female with reported h/o schizophrenia, presented with acute psychosis, paranoia and bizarre behaviors, now improved clinically. She is psychiatrically stable for discharge and referral for subacute rehab. Plan: -Continue Seroquel 300 mg PO HS -Continue Remeron 15 mg PO HS -Continue Nortriptyline 25 mg PO Daily -Individual, group and milieu tx -Disposition planning in progress Estimated Date of D/C: 07/14/16
[2016-07-13] MEDS: Insulin Detemir 100 Units/ml Inj SC SCH (21:06)
[2016-07-14 06:18] VITALS: BP 108/67; PULSE 71; RESP 18; TEMP 97.2
[2016-07-14] MEDS: Hydrocortisone 2.5% (Rectal) CREAM PR SCH (08:40)
[2016-07-14] MEDS: Insulin Lispro (humaLOG) 100 Units/ml Inj SC SCH ×3 (08:41→12:03)
--- NOTE | 2016-07-14 08:54 | PCM.PYCHPN ---
Psychiatric Progress Note - Psychiatric Progress Note Patient seen today, length of contact: Patient evaluated, chart reviewed, case discussed with team Patient Chief Complaint: "I'm good" Problems Identified/Issues Discussed: Patient has improved clinically. Patient continues to have mild fixed paranoid delusions, but this appears to be the patient's baseline. She is not distressed by these paranoid thoughts and feels safe returning home to her . She has no acute complaints. No current AH/VH. She has been sleep/ eating well as per staff observation. Diagnostic Results: EKG 07/07/16- Normal EKG, normal sinus rhythm Medication Change: No Medical Record Reviewed: Yes Mental Status Examination - Cognitive Function Orientation: Person Memory: Impaired (Patient unable to give a good history, unclear if due to dementia or psychosis) Attention: WNL Concentration: WNL Association: Loose Fund of Knowledge: Poor Decription of patient's judgement and insights: Poor I/ limited judgment - Mood Mood: Neutral - Affect Affect: Broad - Speech Speech: Soft - Formal Thought Process Formal Thought Process: Paranoia (Mild paranoia at baseline), Loosening of associations Psychotic Thoughts and Behaviors: NO AH/VH - Suicidal Ideation Suicidal Ideation: No - Homicidal Ideation Homicidal Ideation: No Goal/Treatment Plan - Goal/Treatment Plan Need for Continued Stay: Remain at risks for inpatient hospitalization, Discharge may exacerbated symptoms, Severe functional impairment Progress Toward Problem(s) and Goals/Treatment Plan: 81 yo female with reported h/o schizophrenia, presented with acute psychosis, paranoia and bizarre behaviors, now improved clinically. She is psychiatrically stable for discharge and referral for subacute rehab. Plan: -Continue Seroquel 300 mg PO HS -Continue Remeron 15 mg PO HS -Continue Nortriptyline 25 mg PO Daily -Individual, group and milieu tx -Disposition planning in progress Estimated Date of D/C: 07/15/16
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
== END 2016-07-14 15:00 | DRG 885 ==
LOC: H.ER 22:29 → H.STEP 22:37
PROVIDERS: ADMIT Psychiatry & Neurology Psychiatry; ATTEND Psychiatry & Neurology Psychiatry
PROC: GZ51ZZZ Individual Psychotherapy, Behavioral (ICD-10-PCS; 2016-06-23)
PROC: GZHZZZZ Group Psychotherapy (ICD-10-PCS; principal; 2016-07-02)
DX: F20.0 Paranoid schizophrenia (principal); G30.9 Alzheimer's disease, unspecified; F02.80 Dementia in other diseases classified elsewhere, unspecified severity, without behavioral disturbance, psychotic disturbance, mood disturbance, and anxiety; N39.0 Urinary tract infection, site not specified; F23 Brief psychotic disorder; J44.9 Chronic obstructive pulmonary disease, unspecified; I10 Essential (primary) hypertension; E78.00 Pure hypercholesterolemia, unspecified; J45.909 Unspecified asthma, uncomplicated; E11.9 Type 2 diabetes mellitus without complications; K29.70 Gastritis, unspecified, without bleeding; F32.9 Major depressive disorder, single episode, unspecified; Z95.5 Presence of coronary angioplasty implant and graft; Z79.84 Long term (current) use of oral hypoglycemic drugs

== ENCOUNTER 2016-12-10 20:21 | Inpatient (IN) | payer MEDICARE, MEDICAID ==
[2016-12-10 20:21] VITALS: BMI 27.3
--- NOTE | 2016-12-10 20:26 | ED PDOC ---
Psych Transfer Clearance - Clearance Statement Clearance Statement: Dr. Marie reviewed vital signs, lab results and transfer papers and determined patient clinically stable for psychiatric admission.
[2016-12-10 20:36] VITALS: O2SAT 99
--- NOTE | 2016-12-10 21:14 | PCM.BM ---
<Angel LuisshanonGiovanna C - Last Filed: 12/10/16 21:12> Treatment Plan Problems - Problems identified on initial assessmt Agitated/Aggressive Behavior Date Initiated: 12/10/16 Time Initiated: 21:13 Assessment reference: NA Status: Active Altered Sleep pattern Date Initiated: 12/10/16 Time Initiated: 21:13 Assessment reference: NA Status: Active Treatment assets and liabiliti Patient Assests: cooperative, good support system, negotiates basic needs, cognitively intact Patient Liabilities: medical problems - Milieu Protocol Maintain good personal hygiene: daily Encourage regular showers, daily Remind patient to perform daily oral care, other Assist patient to perform ADL's (prn) Conduct patient checks and document Observation sheet: Q15 minutes Maintain personal safety: every shift Educate patient to report safety concerns to staff, every shift Monitor environment for contraband/sharps Medication safety: Monitor for expected outcome, potential side effects: every shift, Assess barriers to learning: every shift, Assess readiness for medication education: every shift <LionSimran M - Last Filed: 12/13/16 09:38> - Diagnosis (1) Schizophrenia Status: Acute Interventions: 12/13/16 09:48 Medication management Individual and group therapy Psycho-education Family Contact Family contact: Patient agrees to contact, Telephone contact initiated by staff , Family contacted unit to give information Family contact name: Amparo Phelan Family contacted how many times per week?: 2 ([phone]) - Outside Agency Dr. Miladis Boswell MD Care involvment: Information-sharing Agency contact name: [address] [place] [address], [address]. [place] [address] Agency contact number: [phone] - Goals for Treatment Patient goals for treatment: Pt to be encouraged to attend activity and clinical groups 3-5x per week to identify at least 2 contributing factors to increased agitation, paranoia and aggressive bx's at home. Pt to be encouraged to participate in group milieu to develop effective coping skills, improve insight and decrease aggressive bx's and paranoia. Discharge/Continuing Care - Education Needs Education Needs: Family Medication, Family Diagnosis/Disease Process, Family Coping Skills, Family Placement options, Family Community resources, Family Activities of Daily Living, Family Uses of Medical Equipment, Family Health Practices/Safety, Family Personal Hygiene/Grooming, Family Aftercare Safety Plan , Patient Medication, Patient Diagnosis/Disease Process, Patient Coping Skills, Patient Placement options, Patient Community resources, Patient Activities of Daily Living, Patient Uses of Medical Equipment, Patient Health Practices/Safety , Patient Personal Hygiene/Grooming, Patient Aftercare Safety Plan - Discharge Discharge Criteria: Tolerates medication w/o severe side effects, Free of paranoid thoughts, Free of agitation, Normal sleep pattern, Ability to care for self, Reduction of target symptoms Discharge to:: Home, With Family - Additional Comments 12/13/16 09:42 Pt seen and discussed in team meeting. Reason for admission discussed. Pt's social and medical issues discussed. Pt's medications reviewed. Tx plan discussed and reviewed. 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 - Treatment Team Participation Discussed with Family/SO: Yes (Pt's family will be informed via telephone) <Anita Field - Last Filed: 12/13/16 09:54> - Diagnosis (1) Schizophrenia Status: Acute Interventions: 12/13/16 09:48 Medication management Individual and group therapy Psycho-education
[2016-12-10] MEDS ORDERED: Alum-Mag Hydrox-Simethicone Susp (30 mL) PO PRN (21:26)
[2016-12-10] MEDS ORDERED: Bismuth Subsalicylate 262 mg/15 ml Sus (240 ml) PO PRN (21:26)
[2016-12-10] MEDS ORDERED: Albuterol-Ipratrop 3 mg / 0.5 (3 ml) UD INH PRN (23:23)
[2016-12-11 07:29] LABS: T4 7.28 ug/dl (5.5-11.0)
[2016-12-11 07:32] LABS: IRON 61 ug/dL (37-170)
[2016-12-11 07:43] LABS: THYROID STIMULATING HORMONE 2.48 mIU/ML (0.46-4.68)
[2016-12-11] MEDS: Insulin Regular 100 units/ml SC SCH ×4 (08:57→21:02)
[2016-12-11] MEDS ORDERED: Influenza Vaccine 18yr & older 0.5 ML/45 MCG SYR IM ONE (09:00)
[2016-12-11] MEDS: Magnesium Hydroxide Susp 30 ml UD PO PRN (10:33)
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
--- NOTE | 2016-12-11 12:00 | CP.PCM.CON ---
History of Present Illness - History of Present Illness History of Present Illness: Reason for Consult: per hospital protocol HPI 81 year old female PMH HTN DM COPD admitted for homicidal and suicidal ideations reported by patient's daughter. Pt does report abdominal pain likely secondary to constipation, and will initiate MOM today. Otherwise no complaints. VSS NAD. Denies homicidal / suicidal ideations at this time. ROS: per HPI, 12 systems reviewed and negative PMH: HTN DM COPD PSH: denies FH: denies SH: denies tobacco, ETOH, IVDU Meds: as below Allergies: NKDA Vitals: reviewed and currently stable Exam: GEN: WDWN, alert, cooperative HEENT: NCAT, PERRL, EOMI NECK: supple, no JVD, no lymphadenopathy CARDIAC: +S1S2 RRR LUNG: CTAB No WRR ABD: SOFT NT ND BSX4 NO MASSES NO HSM EXT: +pedal pulses, equal strength NEURO: AAOx3 SKIN warm, dry PSYCH normal mood, normal affect Labs: reviewed from prior chart in other [facility] facility Active Medications: Acetaminophen [Tylenol 325mg tab] 650 mg PO Q4 PRN Aluminum Hydroxide/Magnesium [Maalox Plus 30 ml] 30 ml PO Q4 PRN Bismuth Subsalicylate [Pepto-Bismol] 524 mg PO Q4 PRN LORazepam [Ativan] 0.5 mg PO HS PRN LORazepam [Ativan] 0.5 mg PO Q6 PRN Magnesium Hydroxide [Milk Of Magnesia] 30 ml PO HS PRN 12/10/16 22:00 QUEtiapine [SEROquel] 12.5 mg PO HS 12/10/16 23:23 Albuterol/Ipratropium [Duoneb 3 mg/0.5 mg (3 ml) UD] 3 ml INH RQ6 PRN 12/11/16 07:30 Insulin Human Regular [HumuLIN R] See Protocol SC ACHS 12/11/16 09:00 Gabapentin [Neurontin] 600 mg PO DAILY MetFORMIN [glucOPHAGE] 1,000 mg PO BID Valsartan [Diovan] 160 mg PO DAILY 12/11/16 22:00 Atorvastatin [Lipitor] 10 mg PO HS Insulin Detemir [Levemir] 25 units SC HS Assessment and Plan: 81 year old female PMH HTN DM COPD admitted for homicidal and suicidal ideations reported by patient's daughter. Pt does report abdominal pain likely secondary to constipation, and will initiate MOM today. Otherwise no complaints. VSS NAD. Denies homicidal / suicidal ideations at this time. Suicidal / Homicidal Ideations per psychiatry team Constipation MOM and monitor COPD bronchodilators as necessary DMII cont meformin, neurontin, insulin HLD cont statin HTN cont valsartan Past Patient History - Past Medical History & Family History Past Medical History?: Yes - Past Social History Smoking Status: Never Smoked - CARDIAC Hx Hypercholesterolemia: Yes Hx Hypertension: Yes - PULMONARY Hx Asthma: Yes Hx Chronic Obstructive Pulmonary Disease (COPD): Yes - NEUROLOGICAL Hx Alzheimer's Disease: Yes - HEENT Hx HEENT Problems: No - RENAL Hx Chronic Kidney Disease: No - ENDOCRINE/METABOLIC Hx Endocrine Disorders: Yes Hx Diabetes Mellitus Type 2: Yes - HEMATOLOGICAL/ONCOLOGICAL Hx Human Immunodeficiency Virus (HIV): No - INTEGUMENTARY Hx Dermatological Problems: No - MUSCULOSKELETAL/RHEUMATOLOGICAL Hx Falls: Yes - GASTROINTESTINAL Hx Gastritis: Yes - GENITOURINARY/GYNECOLOGICAL Hx Sexually Transmitted Disorders: No - PSYCHIATRIC Hx Anxiety: Yes Hx Bipolar Disorder: Yes Hx Depression: Yes Hx Schizophrenia: Yes Hx Substance Use: No - SURGICAL HISTORY Hx Coronary Stent: Yes (CANNOT RECALL DATE) Hx Tubal Ligation: Yes - ANESTHESIA Hx Anesthesia: Yes Hx Anesthesia Reactions: No Hx Malignant Hyperthermia: No Meds Allergies/Adverse Reactions: Allergies Allergy/AdvReac Type Severity Reaction Status Date / Time No Known Allergies Allergy Verified 12/10/16 11:29 - Medications Medications: Current Medications Acetaminophen (Tylenol 325mg Tab) 650 mg PO Q4 PRN PRN Reason: Pain, moderate (4-7) Last Admin: 12/11/16 10:32 Dose: 650 mg Al Hydrox/Mg Hydrox/Simethicone (Maalox Plus 30 Ml) 30 ml PO Q4 PRN PRN Reason: Dyspepsia Albuterol/Ipratropium (Duoneb 3 Mg/0.5 Mg (3 Ml) Ud) 3 ml INH RQ6 PRN PRN Reason: Shortness of Breath Atorvastatin Calcium (Lipitor) 10 mg PO HS NIMO Bismuth Subsalicylate (Pepto-Bismol) 524 mg PO Q4 PRN PRN Reason: Diarrhea Gabapentin (Neurontin) 600 mg PO DAILY [facility] Last Admin: 12/11/16 08:55 Dose: 600 mg Insulin Detemir (Levemir) 25 units SC HS [facility] Insulin Human Regular (Humulin R) 0 units SC ACHS NIMO PRN Reason: Protocol Last Admin: 12/11/16 08:57 Dose: 1 u Lorazepam (Ativan) 0.5 mg PO HS PRN PRN Reason: Insomnia Stop: 12/24/16 21:27 Last Admin: 12/10/16 21:42 Dose: 0.5 mg Lorazepam (Ativan) 0.5 mg PO Q6 PRN PRN Reason: Anixety/Agitation Stop: 12/24/16 21:27 Last Admin: 12/11/16 04:00 Dose: 0.5 mg Magnesium Hydroxide (Milk Of Magnesia) 30 ml PO HS PRN PRN Reason: Constipation Last Admin: 12/11/16 10:33 Dose: 30 ml Metformin HCl (Glucophage) 1,000 mg PO BID [facility] Last Admin: 12/11/16 08:55 Dose: 1,000 mg Quetiapine Fumarate (Seroquel) 12.5 mg PO HS [facility] Last Admin: 12/10/16 21:42 Dose: 12.5 mg Valsartan (Diovan) 160 mg PO DAILY [facility] Last Admin: 12/11/16 08:55 Dose: 160 mg Results - Vital Signs Recent Vital Signs: Last Vital Signs Temp 97.5 F L 12/11/16 05:50 Pulse 89 12/11/16 05:50 Resp 19 12/11/16 05:50 BP 151/79 H 12/11/16 05:50 Pulse Ox 99 12/10/16 20:28 - Labs Labs: Laboratory Results - last 24 hr 12/10/16 12/11/16 12/11/16 21:45 03:30 06:30 POC Glucose (mg/dL) 164 H 154 H Iron TIBC % Saturation Ferritin 86.3 Triglycerides 232 H Cholesterol 261 H LDL Cholesterol Direct 183 H HDL Cholesterol 33 Thyroxine (T4) 7.28 Total T3 0.859 L TSH 3rd Generation 2.48 12/11/16 06:30 POC Glucose (mg/dL) Iron 61 TIBC 309 % Saturation 20 Ferritin Triglycerides Cholesterol LDL Cholesterol Direct HDL Cholesterol Thyroxine (T4) Total T3 TSH 3rd Generation
[2016-12-11] MEDS: Insulin Detemir 100 Units/ml Inj SC SCH (21:03)
[2016-12-12] MEDS: Insulin Regular 100 units/ml SC SCH ×4 (08:41→21:10)
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
[2016-12-12] MEDS: Insulin Detemir 100 Units/ml Inj SC SCH (21:11)
[2016-12-13] MEDS: Insulin Regular 100 units/ml SC SCH ×4 (08:24→23:25)
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
--- NOTE | 2016-12-13 19:11 | CARD ---
APPROVED REPORT EKG Measurement Heart [id number] HI [id number] [id number] <Conclusion> Normal sinus rhythm Nonspecific T wave abnormality Abnormal ECG
[2016-12-13] MEDS: Insulin Detemir 100 Units/ml Inj SC SCH (21:14)
[2016-12-14] MEDS: Insulin Regular 100 units/ml SC SCH ×4 (08:55→21:07)
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
[2016-12-14] MEDS: Insulin Detemir 100 Units/ml Inj SC SCH (21:08)
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
[2016-12-15] MEDS: Insulin Regular 100 units/ml SC SCH ×3 (08:52→16:30)
[2016-12-15] MEDS: Insulin Detemir 100 Units/ml Inj SC SCH (21:09)
--- NOTE | 2016-12-16 08:19 | PCM.PYCHPN ---
Psychiatric Progress Note - Psychiatric Progress Note Patient seen today, length of contact: Patient evaluated, case discussed with team, chart reviewed, 35 min Patient Chief Complaint: "I don't trust my " Problems Identified/Issues Discussed: No significant events. Patient continues to be paranoid about her . She has poor reality testing and memory deficits. No adverse effects reported. Patient follows up with Dr. Boswell, who confirmed that patient's at home medications were Ativan 1 mg PO Q12 and Remeron 15 mg PO HS. Diagnostic Results: HEAD CT 12/10/16- No intracranial hemorrhage. 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 Mild to moderate periventricular white matter ischemic change. No evidence of acute infarct. No intracranial mass. Medication Change: Yes (Restart Remeron 15 mg PO HS) Medical Record Reviewed: Yes Mental Status Examination - Cognitive Function Orientation: Person, Place, Situation Memory: Impaired Association: Loose Fund of Knowledge: Poor Decription of patient's judgement and insights: Poor I/J - Mood Mood: Anxious - Affect Affect: Constricted - Speech Speech: Soft - Formal Thought Process Formal Thought Process: Delusions, Paranoia, Loosening of associations Psychotic Thoughts and Behaviors: +Paranoid delusions - Suicidal Ideation Suicidal Ideation: No - Homicidal Ideation Homicidal Ideation: No Goal/Treatment Plan - Goal/Treatment Plan Need for Continued Stay: Remain at risks for inpatient hospitalization, Discharge may exacerbated symptoms, Severe functional impairment Progress Toward Problem(s) and Goals/Treatment Plan: Schizophrenia, Dementia; patient needs continued hospitalization for treatment, stabilization and safety. -Continue Seroquel 300 mg PO HS -Restart Remeron 15 mg PO HS -Individual and group therapy -Medicine consult appreciated -Physical therapy -Disposition planning -Obtain collateral history Estimated Date of D/C: 12/20/16 - Smoking Cessation Smoking Cessation Initiated: No Reason for not providing: Not indicated
[2016-12-16] MEDS: Insulin Regular 100 units/ml SC SCH ×4 (08:49→21:13)
[2016-12-16] MEDS: Insulin Detemir 100 Units/ml Inj SC SCH (21:13)
[2016-12-17] MEDS: Insulin Regular 100 units/ml SC SCH ×4 (07:45→22:04)
--- NOTE | 2016-12-17 08:46 | PCM.PYCHPN ---
Psychiatric Progress Note - Psychiatric Progress Note Patient seen today, length of contact: Patient evaluated, case discussed with team, chart reviewed, 35 min Patient Chief Complaint: "I don't trust my " Problems Identified/Issues Discussed: No significant events overnight. Patient continues to express mild paranoid about her when asked. She has poor reality testing and memory deficits. No adverse effects to medications reported. Diagnostic Results: HEAD CT 12/10/16- No intracranial hemorrhage. 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 Mild to moderate periventricular white matter ischemic change. No evidence of acute infarct. No intracranial mass. Medication Change: No Medical Record Reviewed: Yes Mental Status Examination - Cognitive Function Orientation: Person, Place, Situation Memory: Impaired Concentration: WNL Association: Loose Fund of Knowledge: Poor Decription of patient's judgement and insights: Poor I/J - Mood Mood: Anxious - Affect Affect: Constricted - Speech Speech: Soft - Formal Thought Process Formal Thought Process: Delusions, Paranoia, Loosening of associations Psychotic Thoughts and Behaviors: +Paranoid delusions - Suicidal Ideation Suicidal Ideation: No - Homicidal Ideation Homicidal Ideation: No Goal/Treatment Plan - Goal/Treatment Plan Need for Continued Stay: Remain at risks for inpatient hospitalization, Discharge may exacerbated symptoms, Severe functional impairment Progress Toward Problem(s) and Goals/Treatment Plan: Schizophrenia, Dementia; patient needs continued hospitalization for treatment, stabilization and safety. -Continue Seroquel 300 mg PO HS -Continue Remeron 15 mg PO HS -Individual and group therapy -Medicine consult appreciated -Physical therapy -Disposition planning -Obtain collateral history Estimated Date of D/C: 12/20/16 - Smoking Cessation Smoking Cessation Initiated: No Reason for not providing: Not indicated
[2016-12-17] MEDS: Insulin Detemir 100 Units/ml Inj SC SCH (21:04)
[2016-12-18] MEDS: Insulin Regular 100 units/ml SC SCH ×4 (08:21→21:05)
--- NOTE | 2016-12-18 11:13 | PCM.PYCHPN ---
Psychiatric Progress Note - Psychiatric Progress Note Patient seen today, length of contact: pt seen and evaluated Patient Chief Complaint: pt has remained paranoid and neded redirection but compliant with meds. Medication Change: No Medical Record Reviewed: Yes Mental Status Examination - Cognitive Function Orientation: Person, Place, Situation Memory: Impaired Concentration: WNL Association: Loose Fund of Knowledge: Poor - Mood Mood: Anxious - Affect Affect: Constricted - Speech Speech: Soft - Formal Thought Process Formal Thought Process: Delusions, Paranoia, Loosening of associations - Suicidal Ideation Suicidal Ideation: No - Homicidal Ideation Homicidal Ideation: No Goal/Treatment Plan - Goal/Treatment Plan Need for Continued Stay: Remain at risks for inpatient hospitalization, Discharge may exacerbated symptoms, Severe functional impairment Estimated Date of D/C: 12/20/16
[2016-12-18] MEDS: Insulin Detemir 100 Units/ml Inj SC SCH (21:03)
[2016-12-19] MEDS: Insulin Regular 100 units/ml SC SCH ×4 (09:02→21:17)
--- NOTE | 2016-12-19 18:39 | PCM.PYCHPN ---
Psychiatric Progress Note - Psychiatric Progress Note Patient seen today, length of contact: pt seen and evaluated Patient Chief Complaint: pt has remained paranoid and needed redirection but compliant with meds. Medication Change: No Medical Record Reviewed: Yes Mental Status Examination - Cognitive Function Orientation: Person, Place, Situation Memory: Impaired Concentration: WNL Association: Loose Fund of Knowledge: Poor - Mood Mood: Anxious - Affect Affect: Constricted - Speech Speech: Soft - Formal Thought Process Formal Thought Process: Delusions, Paranoia, Loosening of associations - Suicidal Ideation Suicidal Ideation: No - Homicidal Ideation Homicidal Ideation: No Goal/Treatment Plan - Goal/Treatment Plan Need for Continued Stay: Remain at risks for inpatient hospitalization, Discharge may exacerbated symptoms, Severe functional impairment Estimated Date of D/C: 12/20/16
[2016-12-19] MEDS: Insulin Detemir 100 Units/ml Inj SC SCH (21:17)
[2016-12-19] MEDS: Magnesium Hydroxide Susp 30 ml UD PO PRN (22:08)
[2016-12-20 06:19] VITALS: BP 131/68; PULSE 73; RESP 18; TEMP 97.3
[2016-12-20] MEDS: Insulin Regular 100 units/ml SC SCH ×2 (09:19→12:20)
--- NOTE | 2016-12-20 10:23 | PCM.BM ---
Treatment Plan Problems - Problems identified on initial assessmt Agitated/Aggressive Behavior Date Initiated: 12/10/16 Time Initiated: 21:13 Assessment reference: NA Status: Active Altered Sleep pattern Date Initiated: 12/10/16 Time Initiated: 21:13 Assessment reference: NA Status: Active Treatment assets and liabiliti Patient Assests: cooperative, good support system, negotiates basic needs, cognitively intact Patient Liabilities: medical problems - Diagnosis (1) Schizophrenia Status: Acute Interventions: 12/13/16 09:48 Medication management Individual and group therapy Psycho-education - Milieu Protocol Maintain good personal hygiene: daily Encourage regular showers, daily Remind patient to perform daily oral care, other Assist patient to perform ADL's (prn) Conduct patient checks and document Observation sheet: Q15 minutes Maintain personal safety: every shift Educate patient to report safety concerns to staff, every shift Monitor environment for contraband/sharps Medication safety: Monitor for expected outcome, potential side effects: every shift, Assess barriers to learning: every shift, Assess readiness for medication education: every shift Milieu Narrative: Schizophrenia, Dementia; patient needs continued hospitalization for treatment, stabilization and safety. -Continue Seroquel 300 mg PO HS -Continue Remeron 15 mg PO HS -Individual and group therapy -Medicine consult appreciated -Physical therapy -Disposition planning -Obtain collateral history Family Contact Family contact: Patient agrees to contact, Telephone contact initiated by staff , Family contacted unit to give information Family contact name: Amparo Phelan Family contacted how many times per week?: 2 ([phone]) - Outside Agency Dr. Miladis Boswell MD Care involvment: Information-sharing Agency contact name: [address] [place] [address], [address]. [place] [address] Agency contact number: [phone] - Goals for Treatment Patient goals for treatment: Pt to be encouraged to attend activity and clinical groups 3-5x per week to identify at least 2 contributing factors to increased agitation, paranoia and aggressive bx's at home. Pt to be encouraged to participate in group milieu to develop effective coping skills, improve insight and decrease aggressive bx's and paranoia. Discharge/Continuing Care - Education Needs Education Needs: Family Medication, Family Diagnosis/Disease Process, Family Coping Skills, Family Placement options, Family Community resources, Family Activities of Daily Living, Family Uses of Medical Equipment, Family Health Practices/Safety, Family Personal Hygiene/Grooming, Family Aftercare Safety Plan , Patient Medication, Patient Diagnosis/Disease Process, Patient Coping Skills, Patient Placement options, Patient Community resources, Patient Activities of Daily Living, Patient Uses of Medical Equipment, Patient Health Practices/Safety , Patient Personal Hygiene/Grooming, Patient Aftercare Safety Plan - Discharge Discharge Criteria: Tolerates medication w/o severe side effects, Free of paranoid thoughts, Free of agitation, Normal sleep pattern, Ability to care for self, Reduction of target symptoms Discharge to:: Home, With Family - Additional Comments 12/13/16 09:42 Pt seen and discussed in team meeting. Reason for admission discussed. Pt's social and medical issues discussed. Pt's medications reviewed. Tx plan discussed and reviewed. [employer] will contact family for collateral information. - Treatment Team Participation Patient/Family/SO Statement: Schizophrenia, Dementia; patient needs continued hospitalization for treatment, stabilization and safety. -Continue Seroquel 300 mg PO HS -Continue Remeron 15 mg PO HS -Individual and group therapy -Medicine consult appreciated -Physical therapy -Disposition planning -Obtain collateral history Discussed with Family/SO: Yes (Pt's family will be informed via telephone) Was Patient/Family/SO present at Treatment Team Meeting: Yes Treatment Plan Review - Problem Agitated/Aggressive Behavior Date Initiated: 12/20/16 Time Initiated: 10:21 Progress toward outcomes: improved Altered Sleep pattern Date Initiated: 12/20/16 Time Initiated: 10:21 Progress toward outcomes: unchanged - Discharge / Continuing Care Discharge to:: Home, With Family Behavioral Health Services: Outpatient therapy, Other (Medication Management) Health Needs: Follow up care/test, Doctor appointments, Special equipment, Nutritional, Medications/Rx, Recreational/Social
--- NOTE | 2016-12-20 11:45 | PCM.PYCHDC ---
Mental Status Examination - Mental Status Examination Orientation: Person, Place Memory: Impaired Mood: Neutral Affect: Broad Speech: Appropriate Association: Loose Fund of Knowledge: Poor Formal Thought Process: Paranoia (Patient has mild paranoia at baseline), Loosening of associations (Due to baseline dementia) Description of patient's judgement and insight: Chronic Poor I/J Psychotic Thoughts and Behaviors: +mild paranoia at baseline Suicidal Ideation: No Current Homicidal Ideation?: No Discharge Summary - Discharge Note Reason for Hospitalization: HPI: 81 year old female PMH HTN DM COPD admitted for worsening psychosis. Pt does report abdominal pain likely secondary to constipation. Otherwise no complaints. VSS NAD. Denies homicidal / suicidal ideations at this time. ROS: per HPI, 12 systems reviewed and negative PMH: HTN DM COPD PSH: denies FH: denies SH: denies tobacco, ETOH, IVDU Meds: as below Allergies: NKDA Vitals: reviewed and currently stable Laboratory Data: Abnormal Lab Results 12/19/16 12/19/16 12/20/16 15:05 20:15 06:14 POC Glucose (mg/dL) 150 H 147 H 157 H 12/20/16 11:36 POC Glucose (mg/dL) 266 H Consultations:: List each consultation separately and include: 1. Reason for request. 2. Findings. 3. Follow-up Consultations: Medicine consult appreciated Summary of Hospital Course include:: 1. Description of specific treatment plan utilized for patients during their course of treatmen. 2. Summarize the time- course for resolution of acute symptoms and/or regressed behaviors. 3. Describe issues identified and worked on during hospitalization. 4. Describe medication utilized. 5. Describe medical problems identified and treated. 6. Reassessment of suicide risk Summary of Hospital Course: Patient was admitted to the psychiatry unit. Individual and group therapy were provided. Patient was stabilized on Seroquel 300 mg PO HS and Remeron 15 mg PO HS. Patient has improved clinically. She has cognitive deficits and mild paranoia at her baseline. She is not currently an acute danger to herself or others and is psychiatrically stable for discharge to home. - Diagnosis (1) Schizophrenia Current Visit: No Status: Acute - Final Diagnosis (DSM 5) Condition upon Discharge: STABLE DSM 5: Schizophrenia, Dementia Disposition: HOME/ ROUTINE Follow-up Treatment Plan: Schizophrenia, Dementia; patient is currently psychiatrically stable for discharge. -Continue Seroquel 300 mg PO HS -Continue Remeron 15 mg PO HS -Individual and group therapy -Medicine consult appreciated -Physical therapy -Disposition to home w/ outpatient follow-up Prescriptions/Medication Reconciliation: Albuterol/Ipratropium [Duoneb 3 mg/0.5 mg (3 ml) UD] 3 ml INH RQ6 PRN #1 neb PRN Reason: Shortness Of Breath Atorvastatin [Lipitor] 10 mg PO HS #30 tab Docusate [Colace] 100 mg PO BID #60 cap Gabapentin [Neurontin] 600 mg PO DAILY #30 tab Insulin Glargine, Recombina [Lantus] 25 unit SC HS #1 unit MetFORMIN [glucoPHAGE] 1,000 mg PO BID #60 tab Mirtazapine [Remeron] 15 mg PO HS #30 tab QUEtiapine [SEROquel] 300 mg PO HS #30 tab Valsartan [Diovan] 160 mg PO DAILY #30 tab - Smoking Cessation Smoking Cessation Medication prescribed: No Reason for not providing: Not indicated - Antipsychotic Medications Pt discharged on 2 or more routine antipsychotic medications: No
== END 2016-12-20 12:59 | disposition home or self-care (01) | DRG 885 ==
LOC: H.ER 20:21 → H.STEP 20:39
PROVIDERS: ADMIT Psychiatry & Neurology Psychiatry; ATTEND Psychiatry & Neurology Psychiatry
PROC: GZ51ZZZ Individual Psychotherapy, Behavioral (ICD-10-PCS; 2016-12-10)
PROC: GZHZZZZ Group Psychotherapy (ICD-10-PCS; principal; 2016-12-15)
DX: F20.9 Schizophrenia, unspecified (principal); G30.9 Alzheimer's disease, unspecified; F02.81 Dementia in other diseases classified elsewhere, unspecified severity, with behavioral disturbance; R45.851 Suicidal ideations; J44.9 Chronic obstructive pulmonary disease, unspecified; E11.9 Type 2 diabetes mellitus without complications; E78.00 Pure hypercholesterolemia, unspecified; E78.5 Hyperlipidemia, unspecified; F22 Delusional disorders; F31.9 Bipolar disorder, unspecified; I10 Essential (primary) hypertension; K59.00 Constipation, unspecified; R45.850 Homicidal ideations; Z79.899 Other long term (current) drug therapy; Z95.5 Presence of coronary angioplasty implant and graft; Z98.51 Tubal ligation status; F32.9 Major depressive disorder, single episode, unspecified; F41.9 Anxiety disorder, unspecified; K29.70 Gastritis, unspecified, without bleeding

== ENCOUNTER 2017-12-27 17:34 | Emergency (ER) | payer MEDICARE, MEDICAID ==
[2017-12-27 17:34] VITALS: BMI 29.2
[2017-12-27 17:37] VITALS: RESP 16; TEMP 98.9; O2SAT 99
--- NOTE | 2017-12-27 18:09 | ED PDOC ---
HPI: Hypertension/Hypotension Time Seen by Provider: 12/27/17 17:55 Chief Complaint (Nursing): High Blood Pressure Chief Complaint (Provider): High blood pressure History Per: Patient History/Exam Limitations: no limitations Onset/Duration Of Symptoms: Days (today) Additional Complaint(s): Pt. was getting therapy at home and doing well. After it finished, she noticed her bp was high at home so sent to the ER. Denies any chest pain, abd pain, dyspnea. No numbness, tingles, headaches, dizziness. Past Medical History Reviewed: Nursing Documentation, Vital Signs Vital Signs: Last Vital Signs Temp 98.9 F 12/27/17 17:35 Pulse 99 H 12/27/17 17:35 Resp 16 12/27/17 17:35 BP 174/104 H 12/27/17 17:35 Pulse Ox 99 12/27/17 17:35 - Medical History PMH: Alzheimer's Disease, Anxiety, Arthritis (BACK), Asthma, Bipolar Disorder, COPD, Depression, Diabetes (type 2), Gastritis, HTN, Hypercholesterolemia, Schizophrenia, Seizures Denies: Hepatitis, HIV, Chronic Kidney Disease, Sexually Transmitted Disease (Patient denied. None reported) - Surgical History Surgical History: Coronary Stent - Family History Family History: States: Unknown Family Hx - Living Arrangements Living Arrangements: With Family - Immunization History Hx Tetanus Toxoid Vaccination: No Hx Influenza Vaccination: No Hx Pneumococcal Vaccination: Yes - Home Medications Home Medications: Ambulatory Orders Medication Instructions Recorded Atorvastatin [Lipitor] 10 mg PO QPM 06/28/17 Gabapentin [Neurontin] 200 mg PO TID 06/28/17 Insulin Glargine, Recombina 0 unit DAILY 06/28/17 [Lantus] Meropenem 500 mg IV Q8 06/28/17 MetFORMIN [glucoPHAGE] 1,000 mg PO BID 06/28/17 Mirtazapine [Remeron] 15 mg PO QPM 06/28/17 QUEtiapine [SEROquel] 300 mg PO QPM 06/28/17 Valsartan/Hydrochlorothiazide 1 tab PO DAILY 06/28/17 [Valsartan-Hctz 160-12.5 mg Tab] Linezolid [Zyvox] 600 mg PO BID #2 tab 07/05/17 - Allergies Allergies/Adverse Reactions: Allergies Allergy/AdvReac Type Severity Reaction Status Date / Time No Known Allergies Allergy Verified 12/27/17 17:35 Review of Systems ROS Statement: Except As Marked, All Systems Reviewed And Found Negative Physical Exam - Reviewed Nursing Documentation Reviewed: Yes Vital Signs Reviewed: Yes - Physical Exam Appears: Positive for: Non-toxic, No Acute Distress Head Exam: Positive for: ATRAUMATIC, NORMAL INSPECTION, NORMOCEPHALIC Skin: Positive for: Normal Color, Warm, DRY Eye Exam: Positive for: EOMI, Normal appearance, PERRL ENT: Positive for: Normal ENT Inspection Neck: Positive for: Normal, Painless ROM Cardiovascular/Chest: Positive for: Regular Rate, Rhythm Respiratory: Positive for: CNT, Normal Breath Sounds Gastrointestinal/Abdominal: Positive for: Normal Exam, Soft. Negative for: Tenderness Back: Positive for: Normal Inspection. Negative for: L CVA Tenderness, R CVA Tenderness Extremity: Positive for: Normal ROM. Negative for: Tenderness, Pedal Edema Neurologic/Psych: Positive for: Alert, clinical nurse leader II-XII, Oriented. Negative for: Motor/Sensory Deficits - ECG O2 Sat by Pulse Oximetry: 99 Pulse Ox Interpretation: Normal - Progress ED Course And Treament: 1822: Dr. Johnston to take over care. FU labs and ekg. Disposition - Clinical Impression Clinical Impression: Hypertension - Patient ED Disposition Is Patient to be Admitted: Transfer of Care - Disposition Disposition: Transfer of Care Disposition Time: 18:25 Condition: STABLE Patient Signed Over To: Héctor Johnston
[2017-12-27 18:51] LABS: BASO % 0.4 % (0.0-2.0); EOS % 0.4 % (0.0-4.0); HEMOGLOBIN 11.9 g/dL (12.0-16.0); LYMPH % 37.5 % (20.0-40.0); MEAN CELL VOLUME 88.7 fl (81.0-99.0); MEAN CORPUSCULAR HGB CONC 33.9 g/dL (33.0-37.0); MEAN PLATELET VOLUME 9.6 fl (7.2-11.7); MONO # 0.8 K/uL (0.0-0.8); MONO % 10.2 % (0.0-10.0); NEUT # 4.2 K/uL (1.8-7.0); NEUT % 51.5 % (50.0-75.0); NRBC % 0.1 % (0.0-0.0); RBC 3.97 Mil/uL (3.80-5.20); RED CELL DISTRIBUTION WIDTH 13.6 % (11.5-14.5); WHITE BLOOD COUNT 8.1 K/uL (4.8-10.8)
[2017-12-27 18:55] LABS: ALT/SGPT 14 U/L (9-52); AST/SGOT 17 U/L (14-36); BLOOD UREA NITROGEN 22 mg/dl (7-17); CALCIUM 9.5 mg/dL (8.4-10.2); GFR NON-AFRICAN AMERICAN 53
--- NOTE | 2017-12-27 19:12 | ED PDOC ---
- Laboratory Results Result Diagrams: 12/27/17 18:41 12/27/17 18:41 - ECG O2 Sat by Pulse Oximetry: 99 (RA) Pulse Ox Interpretation: Normal Medical Decision Making Medical Decision Makin Received endorsement from Dr. Marie pending labs and reeval. 2030 Patient's BP is now normal Patient appears and feels well, states she feels comfortable going home Advised patient to followup as outpatient Return precautions advised Scribe Attestation: Documented by Claudia Bowers, acting as a scribe for Héctor Johnston MD. Provider Scribe Attestation: All medical record entries made by the Scribe were at my direction and personally dictated by me. I have reviewed the chart and agree that the record accurately reflects my personal performance of the history, physical exam, medi anne decision making, and the department course for this patient. I have also personally directed, reviewed, and agree with the discharge instructions and disposition. Disposition - Clinical Impression Clinical Impression: Hypertension - POA Present On Arrival: None - Disposition Referrals: Edin Mahajan MD [Family Provider] - Disposition: Routine/Home Disposition Time: 20:35 Condition: IMPROVED Instructions: High Blood Pressure in Adults Forms: [facility] (Sudanese) Print Language: OCCITAN
[2017-12-27 20:04] VITALS: BP 139/76; PULSE 81
--- NOTE | 2017-12-28 08:01 | CARD ---
APPROVED REPORT Date of service: 12/27/2017 EKG Measurement Heart [id number] 210P [id number] <Conclusion> Normal sinus rhythm Normal ECG
== END 2017-12-27 21:14 | disposition home or self-care (01) ==
LOC: H.ER 17:34
DX: I10 Essential (primary) hypertension (principal); G30.9 Alzheimer's disease, unspecified; F02.80 Dementia in other diseases classified elsewhere, unspecified severity, without behavioral disturbance, psychotic disturbance, mood disturbance, and anxiety; J45.909 Unspecified asthma, uncomplicated; Z86.59 Personal history of other mental and behavioral disorders; E11.9 Type 2 diabetes mellitus without complications